=== PATIENT | male | born 1950 | race Caucasian/White ===

== ENCOUNTER 2022-10-20 12:23 | Outpatient (CLI) | payer MEDICARE, SELFPAY | END 2022-10-20 12:24 | disposition home or self-care (01) | LOC: AMB 10-21 12:36 | PROVIDERS: Visit Provider Family Medicine | DX: R41.82 Altered mental status, unspecified (principal) | CPT/HCPCS: A0425; A0427 ==

== ENCOUNTER 2022-10-20 12:42 | Emergency (ER) | payer MEDICARE, SELFPAY ==
[2022-10-20] VITALS (29 sets, daily range): BP systolic 126–167; BP diastolic 62–101; PULSE 96–130; TEMP 36.5; O2SAT 94–97
--- NOTE | 2022-10-20 13:07 | CRLHL7_ITS ---
For Patients: As a result of the Century Cures Act, medical imaging exams and procedure reports are released immediately into your electronic medical record. You may view this report before your referring provider. If you have questions, please contact your health care provider. Indication: Altered mental status Technique: Volumetric multidetector CT images of the head were obtained without the administration of low osmolar intravenous contrast. Comparison: None available Findings: There is no intra-axial or extra-axial fluid collection. There is no mass effect or midline shift. There is extensive global cortical atrophy and sulcal widening with ex vacuo dilatation of lateral ventricles greater than expected for age. There is mild asymmetrical atrophy of the right greater than left cerebral vertex. There is moderate chronic small vessel disease change within the subcortical and periventricular white matter. Otherwise, the brain parenchyma is preserved in attenuation and conrad-white differentiation. The orbits and their contents are grossly within normal limits. The bony calvarium is grossly intact. 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 The mastoid air cells are well aerated. Impression: Extensive global cortical atrophy with sulcal widening and ex vacuo dilatation greater than expected for age which may represent a component of dementia. There is mild asymmetrical atrophy of the right greater than left cerebral hemisphere. Otherwise, no acute intracranial abnormalities appreciated. Please note that all CT scans at this facility use dose modulation, iterative reconstruction, and/or weight-based dosing when appropriate to reduce radiation dose to as low as reasonably achievable. Dictated by Dudley Tyson MD @ 10/20/2022 2:49:12 PM (Electronically Signed)
[2022-10-20 13:23] LABS: Basophils Percent Auto 0.1 % (0.0-3.0); HCO3 VBG 22 mmol/L (21-28); Hematocrit 44.5 % (37.0-53.0); Hemoglobin* 15.5 gm/dL (13.5-17.5); Immature Granulocytes Pct Auto 0.3 %; Lactate* 2.1 mmol/L (0.5-1.9); Lymphocytes Percent Auto 1.2 % (20-44); Mean Corpuscular HGB Conc 35 gm/dL (32-36); Mean Corpuscular Hemoglobin 32 pg (26-34); Mean Corpuscular Volume 91 fL (80-100); Monocytes Percent Auto 1.9 % (0.0-11.0); Neutrophils Percent Auto 96.5 % (42.0-72.0); PCO2 VBG 33 mmHG (40-50); PO2 VBG 44.6 mmHG (25-47); Platelet Count* 190 K/uL (140-440); RDW Coefficient of Variation % 12.4 % (11.5-15.5); Red Blood Count 4.89 m/uL (4.30-5.90); White Blood Count* 15.66 K/uL (4.50-11.00); pH VBG 7.437 (7.32-7.43)
[2022-10-20 13:27] LABS: Slide Review Reflex No
--- NOTE | 2022-10-20 13:31 | CRLHL7_ITS ---
For Patients: As a result of the Century Cures Act, medical imaging exams and procedure reports are released immediately into your electronic medical record. You may view this report before your referring provider. If you have questions, please contact your health care provider. Indication: Chills, vomiting and bloody stools Technique: Volumetric multidetector CT images of the abdomen and pelvis were obtained after the administration of intravenous contrast. 98 cc Isovue 370 low osmolar intravenous contrast Comparison: None available. Findings: There is minimal basilar atelectasis and parenchymal scar. There is a 4.7 millimeter nodule along the right major fissure. The liver is enlarged with moderate hepatic steatosis and hepatomegaly. There is no focal abnormality. The portal vein is patent. The gallbladder is unremarkable without evidence of radiopaque calculus. There is no significant common biliary ductal dilatation or abrupt cut off. The spleen is normal in enhancement and size. There is mild thickening of the gastric antrum with [id number] gastric mucosal hyperemia. Otherwise the stomach is unremarkable. The pancreas is normal in enhancement without significant atrophy. The adrenal glands are unremarkable. The kidneys demonstrate preserved corticomedullary differentiation with mild nonspecific perinephric stranding. There is no evidence of distal obstructive calculus or hydronephrosis. There is mild to moderate stool seen throughout the colon with minimal descending and sigmoid diverticulosis. There is nonspecific fluid seen within central loops of small bowel. The appendix is unremarkable. There is no significant mesenteric, retroperitoneal, or pelvic sidewall lymph nodes. The aorta is not aneurysmal with scattered atherosclerotic calcifications. The solid pelvic viscera are grossly unremarkable. There is no free fluid or free air. There is a small fat containing umbilical hernia. The lumbar vertebral body heights are grossly maintained with minimal endplate Schmorl`s defects. There is mild straightening of the normal lumbar lordosis. There is mild facet arthrosis. No evidence of displaced fracture. Impression: Mild chronic gastritis changes. Minimal nonspecific fluid is seen within the central small bowel which may be physiologic versus early enteritis change. Moderate stool is seen throughout the proximal colon with distal colonic diverticulosis without overt pericolonic inflammatory changes. The decompressed appearance of the descending and sigmoid colon may obscure low-grade infectious or inflammatory changes. Mild hepatomegaly and hepatic steatosis. Nonspecific perinephric stranding and cystic changes without evidence of obstructive uropathy or obvious filling defect to suggest pyelonephritis. No other acute intra-abdominal abnormalities are appreciated. Please note that all CT scans at this facility use dose modulation, iterative reconstruction, and/or weight-based dosing when appropriate to reduce radiation dose to as low as reasonably achievable. Dictated by Dudley Tyson MD @ 10/20/2022 2:55:15 PM (Electronically Signed)
--- NOTE | 2022-10-20 13:32 | ED_ITS ---
HPI - General Adult General Date Seen: 10/20/22 Chief complaint: Altered Mental Status Stated complaint: Heart issue/weakness Time Seen by Provider: 10/20/22 12:53 Source: patient and family Mode of arrival: EMS Limitations: no limitations History of Present Illness HPI narrative: Patient is a 72-year-old male brought in by EMS, initially reported for altered mental status. History is obtained from the patient as well as his . His reports that she got up at about 7:00 a.m., noting that patient must have gotten up earlier, she estimates about 5:00 a.m.. She saw that he had a bucket next to him on the couch, and that he had been vomiting. She also noted that he had had diarrhea in the bathroom, and there seemed to be a little bit of blood. Does that she left him sleeping on the couch. At some point he got up to the bathroom again, probably about 9 or 930. He seems to made it back to the couch after that. She says that she went downstairs to read until about 11. At that point, he was upstairs in the master bedroom bathroom, and she says that when he was going from the bathroom back to the master bed, he seemed to be stumbling, like his balance was off. She had to help him put his underwear back on because he seemed to be having difficulty with his balance, and she thought he seemed confused. She said that she asked him to say 3 sentences, and he only said I love you. She asked him what city they were in in he said [place]. However, she became concerned about possible stroke and so she called 911. Patient tells me that he went to bed feeling fine, he says he woke up at about quarter to 4 feeling chilled. For the next couple of hours he says he just felt poorly, was having chills on and off. He started to eat breakfast early, but says his stomach was starting to bother him by then so he did not finish his breakfast. He says by about 6 or so he had started to have some vomiting as well as some diarrhea. He notes that he has had a little bit of blood in his stools, denies black stools. He has not had significant abdominal pain but does note a little bit of abdominal pain and a little bit headache. He believes he has had a fever based on how he is feeling. He has not checked his temperature. He denies chest pain or difficulty breathing. He does feel somewhat weak. No urinary symptoms. He remembers all the events up in the master bedroom, says he was feeling somewhat unsteady but attributes this to his bad knees. His says that he seems better now than he did at home. Related Data Home Medications Medication Instructions Recorded Confirmed atorvastatin 20 mg tablet 20 mg PO DAILY 10/20/22 10/20/22 diltiazem HCl 240 mg 240 mg PO DAILY 10/20/22 10/20/22 capsule,extended release 24 hr (Cardizem CD) lisinopril 20 mg tablet 10 mg PO DAILY 10/20/22 10/20/22 metoprolol succinate 100 mg 100 mg PO DAILY 10/20/22 10/20/22 capsule sprinkle, ext. release 24 hr (Kapspargo Sprinkle) rivaroxaban 20 mg PO DAILY 10/20/22 10/20/22 Allergies Allergy/AdvReac Type Severity Reaction Status Date / Time bee venom protein (honey bee) Allergy Unknown Verified 10/20/22 14:15 Review of Systems Status of ROS: Reports: 10 or more systems reviewed and unremarkable except as noted in History and below [facility] Social History Smoking Status: Never smoker How often do you have a drink containing alcohol: 4 or more times a week How many standard drinks containing alcohol do you have on a typical day: 3 or 4 How often do you have six or more drinks on one occasion: Never AUDIT-C Alcohol total score: 5 Non-prescribed substance use: denies use Exam Narrative: Exam Narrative: Vital signs as noted above. In general, an alert, mildly fatigued appearing elderly male. Head: Normocephalic, atraumatic. Eyes: Pupils are equal reactive. Extraocular movements are full. Conjunctivae are normal. No scleral icterus. ENT: Mucous membranes are slightly dry. Throat is normal. Neck: Supple without lymphadenopathy. No meningeal signs. Heart: Mildly tachycardic, regular. No murmur. Lungs: Clear bilaterally. No increased work of breathing, crackles or wheezes. Abdomen: Soft and nondistended, nontender to palpation. Extremities: Well perfused. No edema. No calf tenderness. Pulses intact. Neurologic: Patient is alert and oriented to person and place. Speech is fluent. Face is symmetric. Moves all extremities equally. Cerebellar function is intact by finger-nose testing. Affect: Normal. Skin: Warm and dry. Well perfused. Const: Vital Signs, click to edit/add: Vital Signs - 24 hr 10/20/22 12:51 10/20/22 13:08 10/20/22 12:57 Temperature 97.7 F Pulse Rate 110 H Pulse Rate [Pulse Oximeter] 109 H Blood Pressure Blood Pressure [Ri ght Upper Arm] 138/87 Pulse Oximetry 95 95 94 Oxygen Delivery Me thod Room Air 10/20/22 13:00 10/20/22 13:12 10/20/22 13:13 Temperature Pulse Rate 108 H 102 H 107 H Pulse Rate [Pulse Oximeter] Blood Pressure 167/89 H Blood Pressure [Ri ght Upper Arm] Pulse Oximetry 96 96 96 Oxygen Delivery Me thod 10/20/22 13:30 10/20/22 13:32 10/20/22 13:33 Temperature Pulse Rate 108 H 117 H 114 H Pulse Rate [Pulse Oximeter] Blood Pressure 148/101 H Blood Pressure [Ri ght Upper Arm] Pulse Oximetry 94 94 95 Oxygen Delivery Me thod 10/20/22 14:01 10/20/22 14:02 10/20/22 14:30 Temperature Pulse Rate 120 H 107 H 110 H Pulse Rate [Pulse Oximeter] Blood Pressure 143/90 H Blood Pressure [Ri ght Upper Arm] Pulse Oximetry 94 95 95 Oxygen Delivery Me thod 10/20/22 14:31 10/20/22 15:00 10/20/22 15:02 Temperature Pulse Rate 124 H 114 H 107 H Pulse Rate [Pulse Oximeter] Blood Pressure 155/99 H 154/93 H Blood Pressure [Ri ght Upper Arm] Pulse Oximetry 95 96 96 Oxygen Delivery Me thod 10/20/22 15:03 10/20/22 15:32 10/20/22 15:33 Temperature Pulse Rate 118 H 116 H 107 H Pulse Rate [Pulse Oximeter] Blood Pressure 149/91 H Blood Pressure [Ri ght Upper Arm] Pulse Oximetry 97 96 95 Oxygen Delivery Me thod 10/20/22 16:00 10/20/22 16:02 10/20/22 16:03 Temperature Pulse Rate 118 H 106 H 120 H Pulse Rate [Pulse Oximeter] Blood Pressure 155/88 H Blood Pressure [Ri ght Upper Arm] Pulse Oximetry 96 96 96 Oxygen Delivery Me thod 10/20/22 16:34 10/20/22 16:36 10/20/22 17:00 Temperature Pulse Rate 130 H 121 H Pulse Rate [Pulse Oximeter] Blood Pressure 145/99 H Blood Pressure [Ri ght Upper Arm] Pulse Oximetry 96 95 Oxygen Delivery Me thod 10/20/22 17:01 10/20/22 17:02 10/20/22 17:30 Temperature Pulse Rate 113 H 115 H 96 Pulse Rate [Pulse Oximeter] Blood Pressure 143/62 H Blood Pressure [Ri ght Upper Arm] Pulse Oximetry 94 96 95 Oxygen Delivery Me thod 10/20/22 17:31 10/20/22 17:32 Temperature Pulse Rate 116 H 102 H Pulse Rate [Pulse Oximeter] Blood Pressure 126/65 Blood Pressure [Ri ght Upper Arm] Pulse Oximetry 95 95 Oxygen Delivery Me thod Course Course Hospital Course: Patient had an IV in place, we gave him a L of normal saline here as well as some Zofran. He had no further vomiting and did not have any further diarrhea while here. He continued to complain of mild headache, did not have any severe abdominal pain. His labs showed an elevated white blood cell count of 15.6. Hemoglobin was normal at 15.5 and platelets were normal. His INR was 1.47, consistent with his Eliquis. His venous gas showed an essentially normal pH of 7.43, pCO2 was mildly low at 33, I did note him to be somewhat tachypneic on his arrival. His bicarb was normal at 22. Metabolic panel was notable for a mildly low sodium of 3.4, otherwise normal. Glucose was 127. His lactate initially was 2.1. LFTs notable for an AST of 41, ALT was normal. Alk-phos was normal, bilirubin was normal. CRP was very minimally elevated at 1.4. UA was notable for 2+ ketones. He did have 2-5 red cells and 5-10 white cells, this is been sent for culture. COVID influenza and RSV were negative. A troponin here was normal. I thought that I ordered 1 on arrival, but 1 does not seem to have been done. Therefore, his troponin was done several hours after his arrival. It was 0.01. His initial EKG on arrival was notable for atrial fibrillation, he had a rate at that time of 109 beats per minute. He had an incomplete right bundle branch and a little bit of ST depression in leads 1 to and V5 and V6. I did repeat the EKG once early on in his course and then I repeated again a couple of hours after his I am here. There are no significant changes. I do not have an old EKG, but I do not see any dynamic changes in EKGs here, and the troponin a number of hours into his symptoms is negative which is reassuring. His symptoms primarily are gastrointestinal in nature. I did do a head CT since his was concerned about some possible confusion or balance issues, by my review this is negative for hemorrhage, final radiology read is as follows: Extensive global cortical atrophy with sulcal widening and ex vacuo dilatation greater than expected for age which may represent a component of dementia. There is mild asymmetrical atrophy of the right greater than left cerebral hemisphere. Otherwise, no acute intracranial abnormalities appreciated. I also did a CT of the abdomen and pelvis with contrast, which by my review did not show evidence of diverticulitis, small-bowel obstruction, free air, cholecystitis. He did have some fluid noted in small-bowel loops but I did not see dilated small-bowel loops. Final radiology read is as follows: Mild chronic gastritis changes. Minimal nonspecific fluid is seen within the central small bowel which may be physiologic versus early enteritis change. Moderate stool is seen throughout the proximal colon with distal colonic diverticulosis without overt pericolonic inflammatory changes. The decompressed appearance of the descending and sigmoid colon may obscure low-grade infectious or inflammatory changes. Mild hepatomegaly and hepatic steatosis. Nonspecific perinephric stranding and cystic changes without evidence of obstructive uropathy or obvious filling defect to suggest pyelonephritis. No other acute intra-abdominal abnormalities are appreciated. Overall, I think this is in line with his clinical picture which is that of a gastrointestinal illness, likely viral. He does report a little bit of blood in his stool but has not had any further diarrhea while here. Hemoglobin is normal. Abdominal exam is benign. He feels improved after fluids here. He has been ambulatory, he has been able to eat and drink. Did offer admission if he felt that he was feeling too weak to go home, but he says he would prefer to go home and his feels comfortable with that. Discussed with them if he is feeling worse for any reason, develops severe abdominal pain, fevers, ongoing vomiting, or significant bloody stools/black stools, he should return to the emergency department for re-evaluation. Also discussed that if these symptoms are in fact viral he should feel better over the next 24-48 hours and if not he should be seen in clinic for re-evaluation. Zofran prescribed if needed for nausea. Recommend clear liquids for the next 12-24 hours, advance diet as able. Vital Signs Vital signs: Initial Vital Signs Temperature 97.7 F 10/20/22 12:51 Temperature Source Temporal Artery Scan 10/20/22 12:51 Pulse Rate 109 H 10/20/22 12:51 Blood Pressure 138/87 10/20/22 12:51 Blood Pressure Mean 104 10/20/22 12:51 Blood Pressure Position Supine 10/20/22 12:51 Pulse Oximetry 95 10/20/22 12:51 Oxygen Delivery Method 10/20/22 12:51 Vital Signs Temperature 97.7 F 10/20/22 12:51 Pulse Rate 109 H 10/20/22 12:51 Blood Pressure 138/87 10/20/22 12:51 Pulse Oximetry 95 10/20/22 12:51 Oxygen Delivery Method 10/20/22 12:51 Temperature 97.7 F 10/20/22 12:51 Pulse Rate 102 H 10/20/22 17:32 Blood Pressure 126/65 10/20/22 17:31 Pulse Oximetry 95 10/20/22 17:32 Oxygen Delivery Method 10/20/22 12:51 Medical Decision Making Lab Data Labs: Lab Results 10/20/22 10/20/22 10/20/22 Range/Units 13:05 13:05 13:05 WBC 15.66 H (4.50-11.00) K/uL RBC 4.89 (4.30-5.90) m/uL Hgb 15.5 (13.5-17.5) gm/dL Hct 44.5 (37.0-53.0) % MCV 91 (80-100) fL MCH 32 (26-34) pg MCHC 35 (32-36) gm/dL RDW Coeff of Ankush 12.4 (11.5-15.5) % Plt Count 190 (140-440) K/uL Neut % (Auto) 96.5 H (42.0-72.0) % Lymph % (Auto) 1.2 L (20-44) % [place] % (Auto) 1.9 (0.0-11.0) % Eos % (Auto) 0.0 (0.0-7.0) % Baso % (Auto) 0.1 (0.0-3.0) % Neut # (Auto) 15.10 H (1.7-7.0) K/uL Lymph # (Auto) 0.20 L (0.90-2.90) K/uL [place] # (Auto) 0.30 (0.00-0.90) K/UL Eos # (Auto) 0.00 (0.00-0.50) K/uL Baso # (Auto) 0.00 (0.00-0.30) K/uL INR (0.91-1.10) VBG pH (7.32-7.43) VBG pCO2 (40-50) mmHG VBG pO2 (25-47) mmHG VBG HCO3 (21-28) mmol/L Sodium 138 (135-149) mmol/L Potassium 3.4 L (3.6-5.1) mmol/L Chloride 109 (96-114) mmol/L Carbon Dioxide 22 (20-32) mmol/L BUN 19 (7-30) mg/dL Creatinine 0.8 (0.5-1.5) mg/dL Estimated Creat Clear 69.03 Estimated GFR 93 ml/min Glucose 127 H (60-115) mg/dL Lactate 2.1 H (0.5-1.9) mmol/L Calcium 9.1 (8.4-10.6) mg/dL Total Bilirubin 1.4 (0.1-1.5) mg/dL Direct Bilirubin 0.4 (0.0-0.5) mg/dL AST 41 H (12-35) U/L ALT 36 (4-50) U/L Alkaline Phosphatase 59 (40-150) U/L Troponin I 0.02 (0.01-0.04) ng/mL C-Reactive Protein 1.4 H (0.5-1.0) mg/dL Total Protein 6.9 (6.0-8.3) g/dL Albumin 4.1 (3.3-5.0) g/dL Urine Color (Yellow) Urine Appearance (Clear) Urine pH (5.0-8.5) Ur Specific [place] (1.000-1.030) Urine Protein (Negative) Urine Glucose (UA) (Negative) Urine Ketones (Negative) Urine Blood (Negative) Urine Nitrite (Negative) Urine Bilirubin (Negative) Urine Urobilinogen (0.2-1.0) Ur Leukocyte Esterase (Negative) Urine RBC (0-2) Urine WBC (0-5) Ur Squamous Epith Cells (None-Few) Urine Bacteria (None) SARS-CoV-2 (PCR) (Negative) Influenza Type A (PCR) (Negative) Influenza Type B (PCR) (Negative) RSV (PCR) (Negative) POC Troponin I (0.01-0.04) ng/ml 10/20/22 10/20/22 10/20/22 Range/Units 13:05 13:05 13:09 WBC (4.50-11.00) K/uL RBC (4.30-5.90) m/uL Hgb (13.5-17.5) gm/dL Hct (37.0-53.0) % MCV (80-100) fL MCH (26-34) pg MCHC (32-36) gm/dL RDW Coeff of Ankush (11.5-15.5) % Plt Count (140-440) K/uL Neut % (Auto) (42.0-72.0) % Lymph % (Auto) (20-44) % [place] % (Auto) (0.0-11.0) % Eos % (Auto) (0.0-7.0) % Baso % (Auto) (0.0-3.0) % Neut # (Auto) (1.7-7.0) K/uL Lymph # (Auto) (0.90-2.90) K/uL [place] # (Auto) (0.00-0.90) K/UL Eos # (Auto) (0.00-0.50) K/uL Baso # (Auto) (0.00-0.30) K/uL INR 1.47 H (0.91-1.10) VBG pH 7.437 H (7.32-7.43) VBG pCO2 33 L (40-50) mmHG VBG pO2 44.6 (25-47) mmHG VBG HCO3 22 (21-28) mmol/L Sodium (135-149) mmol/L Potassium (3.6-5.1) mmol/L Chloride (96-114) mmol/L Carbon Dioxide (20-32) mmol/L BUN (7-30) mg/dL Creatinine (0.5-1.5) mg/dL Estimated Creat Clear Estimated GFR ml/min Glucose (60-115) mg/dL Lactate (0.5-1.9) mmol/L Calcium (8.4-10.6) mg/dL Total Bilirubin (0.1-1.5) mg/dL Direct Bilirubin (0.0-0.5) mg/dL AST (12-35) U/L ALT (4-50) U/L Alkaline Phosphatase (40-150) U/L Troponin I (0.01-0.04) ng/mL C-Reactive Protein (0.5-1.0) mg/dL Total Protein (6.0-8.3) g/dL Albumin (3.3-5.0) g/dL Urine Color (Yellow) Urine Appearance (Clear) Urine pH (5.0-8.5) Ur Specific [place] (1.000-1.030) Urine Protein (Negative) Urine Glucose (UA) (Negative) Urine Ketones (Negative) Urine Blood (Negative) Urine Nitrite (Negative) Urine Bilirubin (Negative) Urine Urobilinogen (0.2-1.0) Ur Leukocyte Esterase (Negative) Urine RBC (0-2) Urine WBC (0-5) Ur Squamous Epith Cells (None-Few) Urine Bacteria (None) SARS-CoV-2 (PCR) Negative SARS-CoV-2 (Negative) Influenza Type A (PCR) Negative PCR FLU A (Negative) Influenza Type B (PCR) Negative PCR FLU B (Negative) RSV (PCR) Negative PCR RSV (Negative) POC Troponin I (0.01-0.04) ng/ml 10/20/22 10/20/22 Range/Units 15:33 17:06 WBC (4.50-11.00) K/uL RBC (4.30-5.90) m/uL Hgb (13.5-17.5) gm/dL Hct (37.0-53.0) % MCV (80-100) fL MCH (26-34) pg MCHC (32-36) gm/dL RDW Coeff of Ankush (11.5-15.5) % Plt Count (140-440) K/uL Neut % (Auto) (42.0-72.0) % Lymph % (Auto) (20-44) % [place] % (Auto) (0.0-11.0) % Eos % (Auto) (0.0-7.0) % Baso % (Auto) (0.0-3.0) % Neut # (Auto) (1.7-7.0) K/uL Lymph # (Auto) (0.90-2.90) K/uL [place] # (Auto) (0.00-0.90) K/UL Eos # (Auto) (0.00-0.50) K/uL Baso # (Auto) (0.00-0.30) K/uL INR (0.91-1.10) VBG pH (7.32-7.43) VBG pCO2 (40-50) mmHG VBG pO2 (25-47) mmHG VBG HCO3 (21-28) mmol/L Sodium (135-149) mmol/L Potassium (3.6-5.1) mmol/L Chloride (96-114) mmol/L Carbon Dioxide (20-32) mmol/L BUN (7-30) mg/dL Creatinine (0.5-1.5) mg/dL Estimated Creat Clear Estimated GFR ml/min Glucose (60-115) mg/dL Lactate (0.5-1.9) mmol/L Calcium (8.4-10.6) mg/dL Total Bilirubin (0.1-1.5) mg/dL Direct Bilirubin (0.0-0.5) mg/dL AST (12-35) U/L ALT (4-50) U/L Alkaline Phosphatase (40-150) U/L Troponin I (0.01-0.04) ng/mL C-Reactive Protein (0.5-1.0) mg/dL Total Protein (6.0-8.3) g/dL Albumin (3.3-5.0) g/dL Urine Color Yellow (Yellow) Urine Appearance Slightly Cloudy A (Clear) Urine pH 5.5 (5.0-8.5) Ur Specific [place] 1.015 (1.000-1.030) Urine Protein Negative (Negative) Urine Glucose (UA) Negative (Negative) Urine Ketones 2+ A (Negative) Urine Blood 1+ A (Negative) Urine Nitrite Negative (Negative) Urine Bilirubin Negative (Negative) Urine Urobilinogen 0.2 (0.2-1.0) Ur Leukocyte Esterase 1+ A (Negative) Urine RBC 2-5 A (0-2) Urine WBC 5-10 A (0-5) Ur Squamous Epith Cells None (None-Few) Urine Bacteria Few A (None) SARS-CoV-2 (PCR) (Negative) Influenza Type A (PCR) (Negative) Influenza Type B (PCR) (Negative) RSV (PCR) (Negative) POC Troponin I 0.01 (0.01-0.04) ng/ml Discharge Plan Discharge Clinical Impression: Gastroenteritis, Dehydration Patient Disposition: Home, Self-Care Condition: Improved Instructions: Gastroenteritis (DC) Additional Instructions: Work on hydration, stick with mostly clear liquids for the next day or so, advance diet as you are able. Zofran if needed for nausea. Assuming this is a stomach bug, you should feel better over the next 24 hours. If you are not improved over the next 24-48 hours, you should be seen again at your clinic. If at any time you are acutely worsening, develops high fevers, significant bloody stools, significant abdominal pain, uncontrolled vomiting, severe abdominal pain or other worsening, return to the emergency department. Prescriptions: No Action rivaroxaban [Xarelto] 20 mg PO DAILY atorvastatin 20 mg tablet 20 mg PO DAILY diltiazem HCl [Cardizem CD] 240 mg capsule,extended release 24hr 240 mg PO DAILY Kapspargo Sprinkle 100 mg capsule,sprinkle,ER 24hr 100 mg PO DAILY lisinopril 20 mg tablet 10 mg PO DAILY Follow Up/Referrals: Hadley Richard MD [Staff Physician] - Stand Alone Forms: [facility] Info Instructions
[2022-10-20 13:34] LABS: Albumin* 4.1 g/dL (3.3-5.0); Chloride* 109 mmol/L (96-114); Sodium* 138 mmol/L (135-149)
[2022-10-20 13:35] LABS: Potassium* 3.4 mmol/L (3.6-5.1)
[2022-10-20 13:36] LABS: INR 1.47 (0.91-1.10); Prothrombin Time 18.7 Seconds
[2022-10-20 13:37] LABS: Creatinine* 0.8 mg/dL (0.5-1.5); Est. Creatinine Clearance* 69.03; Estimated Glomerular Filt Rate 93 ml/min
[2022-10-20 13:38] LABS: Alanine Aminotransferase* 36 U/L (4-50); Alkaline Phosphatase* 59 U/L (40-150); Aspartate Amino Transferase* 41 U/L (12-35); Bilirubin Direct* 0.4 mg/dL (0.0-0.5); Bilirubin Total* 1.4 mg/dL (0.1-1.5); Blood Urea Nitrogen* 19 mg/dL (7-30); Calcium* 9.1 mg/dL (8.4-10.6); Carbon Dioxide* 22 mmol/L (20-32); Glucose* 127 mg/dL (60-115); Total Protein* 6.9 g/dL (6.0-8.3)
[2022-10-20 13:40] LABS: C Reactive Protein* 1.4 mg/dL (0.5-1.0)
[2022-10-20 13:49] LABS: Troponin I* 0.02 ng/mL (0.01-0.04)
[2022-10-20] MEDS: 0.9 % SODIUM CHLORIDE 1000 ml 1,000 ML IV (14:03)
[2022-10-20 15:22] LABS: PCR FLU A Negative PCR FLU A (Negative); PCR FLU B Negative PCR FLU B (Negative); PCR RSV Negative PCR RSV (Negative); SARS PCR* Negative SARS-CoV-2 (Negative)
[2022-10-20 15:47] LABS: Troponin, Point-of-Care* 0.01 ng/ml (0.01-0.04)
--- NOTE | 2022-10-20 17:04 | ED.NURSE ---
Pt tolerating liquids and applesauce, no nausea. Pt ambulated, able to ambulate independently with no assistance. Some slight swaying to his gait but stable and tolerates ambulation well. notified.
[2022-10-20 17:25] LABS: Appearance Urine Slightly Cloudy (Clear); Bilirubin Urine Negative (Negative); Blood Urine 1+ (Negative); Color Urine Yellow (Yellow); Glucose Urine Negative (Negative); Ketones Urine 2+ (Negative); Leukocyte Esterase Urine 1+ (Negative); Nitrite Urine Negative (Negative); Protein Urine Negative (Negative); Specific Gravity Urine 1.015 (1.000-1.030); Urobilinogen Urine 0.2 (0.2-1.0); pH Urine 5.5 (5.0-8.5)
[2022-10-20 17:40] LABS: Bacteria Urine Few
== END 2022-10-20 18:12 | disposition home or self-care (01) ==
PROVIDERS: Emergency Provider Emergency Medicine
DX: K52.9 Noninfective gastroenteritis and colitis, unspecified (principal); E86.0 Dehydration
CPT/HCPCS: 36415; 70450; 74177; 80048; 80076; 81001; 82803; 83605; 84484; 85025; 85610; 86140; 87040; 87086; 87186; 87502; 87634; 87635; 93005; 94761; 99284; 99285; J7030; Q9967

== ENCOUNTER 2024-10-24 09:37 | Outpatient (CLI) | payer MEDICARE, SELFPAY | END 2024-10-24 09:38 | disposition home or self-care (01) | LOC: NFLDREF 10:29 | PROVIDERS: PCP Internal Medicine; Visit Provider Internal Medicine | DX: I10 Essential (primary) hypertension (principal) | CPT/HCPCS: 80053 ==

== ENCOUNTER 2024-10-24 10:21 | Outpatient (CLI) | payer MEDICARE, SELFPAY | END 2024-10-24 10:22 | disposition home or self-care (01) | PROVIDERS: PCP Internal Medicine; Visit Provider Orthopaedic Surgery | DX: Z11.9 Encounter for screening for infectious and parasitic diseases, unspecified (principal); I10 Essential (primary) hypertension | CPT/HCPCS: 87081 ==

== ENCOUNTER 2024-11-16 18:43 | Outpatient (CLI) | payer MEDICARE, SELFPAY | END 2024-11-16 18:44 | disposition home or self-care (01) | LOC: AMB 11-17 09:16 | PROVIDERS: PCP Internal Medicine; Visit Provider Student in an Organized Health Care Education/Training Program | DX: R55 Syncope and collapse (principal); R41.82 Altered mental status, unspecified | CPT/HCPCS: A0425; A0427 ==

== ENCOUNTER 2024-11-16 19:20 | Observation (INO) | payer MEDICARE, SELFPAY ==
[2024-11-16] VITALS (17 sets, daily range): BP systolic 135–146; BP diastolic 63–91; PULSE 56–97; RESP 6–22; TEMP 35.7; O2SAT 95–98; BMI 30.8
--- OUTSIDE RECORDS SUMMARY | 2024-11-16 19:21 | XMS_ITS | Encounter Summary ---
Author Organization [facility] Address [address] [address] Care Team Providers Care Consultant [employer]. Vice President [employer] (Ex ) Name Role Phone Jessenia Linda MD Primary Care Provider [phone]- [phone] Reason for Visit * Reason Comments Refill Encounter Details Date Type Department Care Team (Late st Contact Info) Description 11/13/2024 [facility]ill [facility] [address] [facility] [place], [place] [phone] Tavon Momin MD [address] [place], [place] [phone] Refill Social History Tobacco Use Types Packs/Day Years Used Date Smoking Tobacco: Never Smokeless Tobacco: Never Alcohol Use Standard Drinks/Week Comments Yes 7 (1 standard drink = 0.6 oz pur e alcohol) PHQ-2 Answer Date Recorded PHQ-2 Score 0 05/20/2021 Sex and Gender Information Value Date Recorded Sex Assigned at Not on file Legal Sex Male 4:33 AM CDT Gender Identity Not on file Sexual Orientation Not on file documented as of this encounter Plan of Treatment Upcoming Encounters Date Type Department Care Team (Late st Contact Info) Description 11/21/2024 9:00 AM ASSEMBLER INSULATOR Appointment [facility] [address] [phone] Car Kirby, PT [address] [place], [place] [phone] 11/23/2024 1:00 PM ASSEMBLER INSULATOR Appointment [facility] [place] [id number] [place] [address] Car Kirby, PT [address] [facility] [place], [place] [address] 11/28/2024 11:15 AM ASSEMBLER INSULATOR Appointment [facility] [address] [address] Car Kirby, PT [address] [place], [place] [address] 11/30/2024 9:00 AM ASSEMBLER INSULATOR Appointment [facility] Orthopaedics & Sports Medicine [address] [place] [phone] [place] [address] [place] [address] 11/30/2024 1:00 PM ASSEMBLER INSULATOR Appointment [facility] [address] [address] Car Kirby, PT [address] [place], [place] [address] 12/05/2024 11:15 AM ASSEMBLER INSULATOR Appointment [facility] [address] [address] Car Kirby, PT [address] [facility] [place], [place] [address] 12/07/2024 1:00 PM ASSEMBLER INSULATOR Appointment [facility] [address] [address] Car Kirby, PT [address] [facility] [place], [place] [address] 12/12/2024 9:45 AM CDT Appointment [facility] [address] [address] [place] [address] [place] [address] 12/14/2024 10:00 AM CDT Appointment [facility] [address] [address] [place] [address] [place] [address] 12/19/2024 11:15 AM CDT Appointment [facility] [address] [address] Car Kirby, PT [address] [place] [address] 12/21/2024 1:00 PM CDT Appointment [facility] [address] [address] Car Kirby, PT [address] [place] [address] 01/02/2025 11:15 AM CDT Appointment [facility] [address] [address] Car Kirby, PT [address] [place] [address] 01/04/2025 10:30 AM CDT Appointment [facility]ics [facility] Medicine [address] [place] [phone] Dima Hoffman, OA [address] [place] [address] 01/04/2025 1:00 PM CDT Appointment [facility] [address] [address] Car Kirby, PT [address] [place] [address] 05/08/2025 10:15 AM CDT Appointment [facility] Plastic Surgery and Dermatology [facility] [address], [address] [place] [phone] Ambreen Hollis MD [address] [place] [phone] 10/25/2025 10:00 AM ASSEMBLER INSULATOR Appointment [facility] [address] [employer] [place], [place] [address] David Aguilar MD 3900 [place] [address] documented as of this encounter Goals Goal Patient Goal Type Associated Problems Recent Progress Patient-Stated? Author KNEE REPLACEMENT - [facility] - [facility] Care Plan KNEE REPLACEMENT - [facility] - [facility] Ramez Celis documented as of this encounter Visit Diagnoses Not on filedocumented in this encounter Additional Health Concerns Active Problems Noted Date Diagnosed Date KNEE REPLACEMENT - [facility] - [facility] 10/31/2024 documented as of this encounter Care Teams Consultant [employer]. Vice President [employer] (Ex ) Relationship Specialty Start Date End Date Jessenia Linda MD [address] [place] [address] PCP - General Internal Medicine 04/07/24 documented as of this encounter
--- OUTSIDE RECORDS SUMMARY | 2024-11-16 19:21 | XMS_ITS | Encounter Summary ---
[facility] Address [address] [address] Care Team Providers Care Apprenticeship Training Representative Name Role Phone Jessenia Linda MD Primary Care Provider [phone]- [phone] Encounter Details Date Type Department Care Team (Late st Contact Info) Description 10/12/2024 Telephone [facility] Cardiology [address] [place], [place] [phone] Tavon Momin MD [address] [place] [address] Social History Tobacco Use Types Packs/Day Years [...] on file documented as of this encounter Nursing Notes * Corinna Morris RN - 10/12/2024 1:51 PM CST Fannectt message sent O CASE MAKER * Corinna Morris RN - 10/12/2024 1:48 PM CST ----- Message from Tavon Momin sent at 10/12/2024 12:07 PM PIANO CASE MAKER ----- Labs look good. ----- Message ----- From: Lab Background Sent: 10/12/2024 11:39 AM PIANO CASE MAKER To: Tavon Momin MD O CASE MAKER documented in this encounter Plan of Treatment Upcoming Encounters Date Type Department Care Team (Late st Contact Info) Description 11/21/2024 9:00 AM PIANO CASE MAKER Appointment [facility] [address] [address] Car Kirby, PT [address] [place], [place] [address] 11/23/2024 1:00 PM PIANO CASE MAKER Appointment [facility] [address] [address] Car Kirby, PT [address] [employer] [place], [place] [address] 11/28/2024 11:15 AM PIANO CASE MAKER Appointment [facility] [address] [address] Car Kirby, PT [address] [place], [place] [address] 11/30/2024 9:00 AM PIANO CASE MAKER Appointment [facility] Orthopaedics & Sports Medicine [address] [place] [phone] [place] [address] [place], [place] [address] 11/30/2024 1:00 PM PIANO CASE MAKER Appointment [facility] [address] [address] Car Kirby, PT [address] [place], [place] [address] 12/05/2024 11:15 AM PIANO CASE MAKER Appointment [facility] [place] [address] [place] [address] Car Kirby, PT [address] [place] [address] 12/07/2024 1:00 PM PIANO CASE MAKER Appointment [facility] [address] [address] Car Kirby, PT [address] [place] [address] 12/12/2024 9:45 AM CDT Appointment [facility] [address] [address] [place] [address] [place] [address] 12/14/2024 10:00 AM CDT Appointment [facility] [address] [address] [place] [address] [place] [address] 12/19/2024 11:15 AM CDT Appointment [facility] [address] [address] Car Kirby, PT [address] [place] [address] 12/21/2024 1:00 PM CDT Appointment [facility] [address] [address] Car Kirby, PT [address] [place] [address] 01/02/2025 11:15 AM CDT Appointment [facility] [address] [address] Car Kirby, PT [address] [place] [address] 01/04/2025 10:30 AM CDT Appointment [facility] [place] [facility] [address] [place] [phone] Dima Hoffman, OA [address] [facility] [place] [address] 01/04/2025 1:00 PM CDT Appointment [facility] [place] [address] [place] [address] Car Kirby, PT [address] [place] [address] 05/08/2025 10:15 AM CDT Appointment [facility] Pl[facility] Surgery [facility] Dermat[facility] [address], [address] [place] [phone] Ambreen Hollis MD [address] [place] [phone] 10/25/2025 10:00 AM PIANO CASE MAKER Appointment [facility] [address] [facility] [place], [place] [phone] David Aguilar MD [address] [place], [place] [address] documented as of this encounter Visit Diagnoses Not on filedocumented in this encounter Care Teams Apprenticeship Training Representative Relationship Specialty Start Date End Date Jessenia Linda MD [address] [place] [address] PCP - General Internal Medicine 04/07/24 documented as of this encounter
--- OUTSIDE RECORDS SUMMARY | 2024-11-16 19:21 | XMS_ITS | Encounter Summary ---
Author Organization [facility] Address [address] [place] [address] Care Team Providers Care Magnetic Locater Name Role Phone Jessenia Linda MD Primary Care Provider +1- [phone] Reason for Visit * Reason Comments Knee Problem Encounter Details Date Type Department Care Team (Late st Contact Info) Description 10/16/2024 2:30 PM OIL DERRICK OPERATOR Therapy [facility] [address] [address] [place] [address] [place] [address] Chronic pain of right knee (Primary Dx); History of total right knee replacement Social History Tobacco Use Types Packs/Day Years [...] on file documented as of this encounter Progress Notes * Sam Cortez, PT - 10/16/2024 2:30 PM CST [facility] Operative Knee Evaluation/Plan of Care Initial Certification Period: 10/16/2024 to 01/14/25 Referring Provider: KIA MARIE Surgical Procedure: anticipated R TKA Surgical Date: anticipated 11/15/24 Visit Diagnosis: 1. Chronic pain of right knee 2. History of total right knee replacement Precautions: WBAT Orders: Evaluate & treat per protocol Onset/Referral Date: 09/21/24 (order date) SUBJECTIVE Reason for Visit: Pt presents to PT for pre-op appointment with anticipated R TKA on 11/15/24. Pt has experienced long-standing knee pain that has not improved with conservative care and has elected to proceed with TKA. Pt is hoping to get to the point where he can be on his feet for a long period of time prior to pain. Is planning on going [place] [employer] the week of [place] 26 and needs to cancel his appt on 12/26 and 12/28. He also sees that he has surgery on 11/15 and isn't scheduled until 11/28 (thiswas addressed in session today). Pain = 2/10 Patient Therapy Goals: Resume previous level of activity symptom free. Past Medical History: Past Medical History: Past medical history, medication, and allergies were reviewed in the electronic medical record. 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 Presbyopia Myopia S/P vasectomy S/P tonsillectomy and adenoidectomy S/P left knee arthroscopy BPH (benign prostatic hyperplasia) Vitamin D deficiency (HRC) Enlarged prostate with urinary obstruction Asymmetric SNHL (sensorineural hearing loss) Adenomatous polyp of colon Atrial fibrillation with RVR (HRC) Cataract, nuclear sclerotic, both eyes Dyslipidemia (HRC) Anticoagulant long-term use LVH (left ventricular hypertrophy) Ascending aorta dilation (HRC) Aortic insufficiency (HRC) Personal history of malignant melanoma of skin Lower urinary tract symptoms (LUTS) Hard, firm prostate Severe obstructive sleep apnea History of SCC (squamous cell carcinoma) of skin History of dysplastic nevus . Patient has a current medication list which includes the following prescription(s): acetaminophen, atorvastatin, azelaic acid 10%-ivermectin 0.75%- metroNIDAZOLE 1.5% topical cream, digoxin, glucosamine-chondroitin, ketoconazole, lisinopril, metoprolol succinate, metronidazole, xarelto, and triamcinolone acetonide. Patient has a past medical history of BPH (benign prostatic hyperplasia) (11/29/2012), Hypertension (HRC), Sensorineural hearing loss, unspecified, and Vitamin D deficiency (HRC) (11/29/2012). Recently Experienced (Red Flags): Denies fever, chills, night sweats, unrelenting night pain, unexplained weight loss, bowel/bladder changes, saddle sensation changes Pain details: Current pain intensity level: 11/13 Aggravating factors: going up and down stairs, standing, walking, squatting, kneeling, and rising after sitting Relieving factors: Resting and Restriction of activity Work/Leisure/Sport: pt is retired. Would like to bike and walk for exercise. Would like to resume resistance training after surgery Support System: lives with , has a son close by if needed Prior Functional Level: Mobility: --Independent with community mobility with no assistive device. --Independent with household mobility with no assistive device. Assistance provided by: no assistance needed Home Environment: house (able to stay on 1 level but does have a basement he would like to get to) Stairs: 3 steps to enter home: no rail Current Equipment Available: SEC - Single End Cane and cane , Patient History: High Complexity: 3 or more personal factors and/or comorbidities that impact plan of care: A-fib, ascending aorta dilation, aortic insufficiency, h/o skin cancer OBJECTIVE Observation: WNL Gait Exam: Antalgic Transfers: Sit to stand: independent Sit to/from supine: independent Edema: None ROM: AROM Left Extension ROM: 0 Flexion ROM: 120 Right Extension ROM: 0 Flexion ROM: 116 Strength: Quad set: Good SLR: Good, without extensor lag No outcome data collected. Will collect at visit #2 Clinical Examination: Low complexity: Addressed 1-2 elements from body structures and functions (see above), and/or functional limitations as noted below. Today's Intervention/Charges: Physical Therapy Evaluation was completed and the patient was educated on the condition, planned therapy intervention and expectations from treatment. Therapeutic Exercise: 10 minutes -Education- Strengthening and stretching pre-operatively may improve your strength, pain level and function based on current research -Knee exercises: Instructed in and performed TKA exercises: Supine quad sets, hamstring sets, heel slides, straight leg raise, short arc quad, supine knee extension stretch, ankle pumps, seated knee flexion x 10 each, cues for form/pace Therapeutic Activity: 10 minutes -Education for sleep/rest modifications: Place pillow(s) lengthwise under distal LE in supine to keep the knee straight, NOT just under knee. Pillow between legs in sidelying. Recliner with pillow under distal LE to keep knee straight and supported. -Elevating leg(s) above the heart for swelling management, 2-3 times per day, 20 minutes, with concurrent icing for swelling and pain management -Sit to stand transfers, including cues for scooting forward, using arms for support, positioning pre-surgical foot forward to unload and reduce pain -Car transfers, including these cues: Front seat: scooting car seat all the way back, backing up tocar seat, sitting down and pivoting LE's in. Back seat: entering from the passenger side of the carfor the R leg and entering from the driver retraining instructor side for the L leg; first backing up to the car seat, scooting all the way back so the painful leg is supported by the back seat Gait Trainin minutes -Ascending: cues to lead up with uninvolved LE to reduce current pain. -Descending: cues to lead down first with involved LE to reduce current pain. Timed Code Treatment Minutes: 23 Total Treatment Minutes: 31 *pt shows up late to appointmentw Access Code: [email or web address] URL: [email or web address] Date: 10/16/2024 Prepared by: Sam Cortez Exercises - Supine Quad Set - 3-4 x daily - 7 x weekly - 2 sets - 10 reps - 3 seconds hold - Supine Short Arc Quad - 1-2 x daily - 7 x weekly - 2 sets - 10 reps - Active Straight Leg Raise with Quad Set - 1-2 x daily - 7 x weekly - 1-2 sets - 5-10 reps - Seated Long Arc Quad - 1-2 x daily - 7 x weekly - 2 sets - 10 reps - Supine Heel Slide - 3-4 x daily - 7 x weekly - 2 sets - 10 reps - Supine Knee Extension Stretch on Towel Roll - 3-4 x daily - 7 x weekly - 1 sets - 1 reps - 1-3 minutes hold - Seated Knee Flexion Extension AROM - 3-4 x daily - 7 x weekly - 2 sets - 10 reps - Supine Ankle Pumps - 3-4 x daily - 7 x weekly - 1 sets - 10 reps ASSESSMENT Therapist Impression/Summary: Pt presents to PT prior to R TKA expected to be performed on 11/15/24.At session today educated and instructed pt on expected HEP following surgical procedure, use of ADto assist with mobility following surgery, activity modifications, and use of ice, elevation and swelling to assist with pain management and swelling control following surgery. Pt states verbal understanding. Pt will return to clinic for skilled PT following surgical procedure using protocol as a guide as well as any additional guidance from surgical team. PT Clinical Presentation: Low Complexity: Stable and Uncomplicated Clinical Decision Making: Low Complexity Recommendations/Equipment: No additional recommendations at this time Significant Impairments: Pain, Muscle weakness, Muscular imbalances, Poor quad activation/strength,ROM Limitation Functional Limitations: poor body mechanics, difficulty sleeping, difficulty dressing, difficulty with household tasks, difficulty with sports/leisure activities, difficulty with gait, and difficultywith stairs Goals/Functional Outcomes: HEP/Independent Management: Demonstrate independence with HEP and self- management following each treatment session Short Term Goals: Ambulation: Patient will be able to ambulate independently and safely for at least 50 feet for household distances with 4WW assistive device while weightbearing as tolerated in 2-3 days. Ambulation: Patient will have an understanding of the proper sequence of gait up and down stairs and safely demonstrate while weightbearing as tolerated in 2-3 days. ADL: Patient will be able to simulate and describe back to physical therapist a car transfer with use of AD in 2-3 days. ADL: Patient will be able to perform bed and sit to stand transfers independently in 2-3 days Construction Project Manager Goals: Ambulation: Patient will be able to demonstrate up/down 1 flight of stairs with a step through gaitpattern and use of 0-1 railing in 10-12 weeks Ambulation: Patient will be able to ambulate community distances with minimal to no symptoms/limp in 12 weeks. ADL's: Resume previous sleep pattern without awakening due to symptoms in 4 weeks. ADL: Patient will be able to demonstrate sit to stand transfers using involved LE equally 2-4 weeks ADL: Able to dress lower extremities with ease due to improved ROM in 4-6 weeks. ADL: Squat to meat pickler items from floor with minimal/no symptoms in 8-10 weeks. Barriers to Goal Achievement or Learning: none Prognosis: Good PLAN Planned Intervention/Education: ADL/Self Management, Dry Needling, Education, Electrical Stimulation, Gait training, Heat/ice, Manual Therapy, Neuromuscular Re-education, Orthotics, TENS application/self treatment, Therapeutic Activities, Therapeutic Exercise, Ultrasound, Vasopneumatic compression Frequency: 1 x week, 2 x week Duration: 90 days Discharge Plan: Patient will be discharged from therapy when goals are achieved or patient plateausin progress. Informed Consent: Patient and/or family in agreement with the care plan. Plan for Next Treatment: Continue pre-operatively independently and Resume PT post-operatively per protocol. At visit #2, start episode and collect outcomes. The waffle machine operator is completed by the therapist and the referring clinician's electronic signature certifies medical necessity for the plan above. Cosigned by Kia Marie MD at 10/27/2024 5:34 PM OIL DERRICK OPERATOR DERRICK OPERATOR DERRICK OPERATOR DERRICK OPERATOR documented in this encounter Plan of Treatment Upcoming Encounters Date Type Department Care Team (Late st Contact Info) Description 11/21/2024 9:00 AM OIL DERRICK OPERATOR Appointment [facility] [address] [address] Car Kirby, PT [address] [place] [address] 11/23/2024 1:00 PM OIL DERRICK OPERATOR Appointment [facility] [address] [address] Car Kirby, PT [address] [place] [address] 11/28/2024 11:15 AM OIL DERRICK OPERATOR Appointment [facility] [address] [address] Car Kirby, PT [address] [place] [address] 11/30/2024 9:00 AM OIL DERRICK OPERATOR Appointment [facility] Orthopa[facility]ics & Sports Medicine [address] [place] [address] [place] [address] [place] [address] 11/30/2024 1:00 PM OIL DERRICK OPERATOR Appointment [facility] [address] [address] Car Kirby, PT [address] [place] [address] 12/05/2024 11:15 AM OIL DERRICK OPERATOR Appointment [facility] [address] [address] Car Kirby, PT [address] [place] [address] 12/07/2024 1:00 PM OIL DERRICK OPERATOR Appointment [facility] [address] [address] Car Kirby, PT [address] [place] [address] 12/12/2024 9:45 AM CDT Appointment [facility] [address] [address] [place] [address] [place] [address] 12/14/2024 10:00 AM CDT Appointment [facility] [address] [address] [place] [address] [place] [address] 12/19/2024 11:15 AM CDT Appointment [facility] [address] [address] Car Kirby, PT [address] [place] [address] 12/21/2024 1:00 PM CDT Appointment [facility] [place] [address] [place] [address] Car Kirby, PT [address] [place] [address] 01/02/2025 11:15 AM CDT Appointment [facility] Physical Therapy [place] [address] [place] [address] Car Kirby, PT [address] [place] [address] 01/04/2025 10:30 AM CDT Appointment [facility] Medicine [address] [place] [phone] Dima Hoffman, OA [address] [place] [address] 01/04/2025 1:00 PM CDT Appointment [facility] Physical Therapy [place] [address] [place] [address] Car Kirby, PT [address] [place] [address] 05/08/2025 10:15 AM CDT Appointment [facility] Pl[facility] Surgery and D[facility]at[facility] [place] [facility] [address], [address] [place] [phone] Ambreen Hollis MD [address] [place] [phone] 10/25/2025 10:00 AM OIL DERRICK OPERATOR Appointment [facility] [address] [facility] [place], [place] [phone] David Aguilar MD [address] [place] [address] documented as of this encounter Visit Diagnoses Diagnosis Chronic pain of right knee- Primary History of total right knee replacement documented in this encounter Care Teams Magnetic Locater Relationship Specialty Start Date End Date Jessenia Linda MD [address] [place] [address] PCP - General Internal Medicine 04/07/24 documented as of this encounter
--- OUTSIDE RECORDS SUMMARY | 2024-11-16 19:21 | XMS_ITS | Encounter Summary ---
Author Organization [facility] Address [address] [address] Care Team Providers Care Die Repair Name Role Phone Jessenia Linda MD Primary Care Provider [phone]- [phone] Reason for Visit * Reason Comments Refill Encounter Details Date Type Department Care Team (Late st Contact Info) Description 10/09/2024 [facility]ill [facility] [address] [facility] [place], [place] [phone] Tavon Momin MD [address] [place], [place] [phone] Refill Social History Tobacco Use Types Packs/Day [...] st Contact Info) Description 11/21/2024 9:00 AM HEALTH INFORMATICS INSTRUCTOR Appointment [facility] [address] [phone] Car Kirby, PT [address] [place], [place] [phone] 11/23/2024 1:00 PM HEALTH INFORMATICS INSTRUCTOR Appointment [facility] [place] [phone] [place] [address] Car Kirby, PT [address] [facility] [place] [place] [address] 11/28/2024 11:15 AM HEALTH INFORMATICS INSTRUCTOR Appointment [facility] [address] [address] Car Kirby, PT 3800 [place], [place] [address] 11/30/2024 9:00 AM HEALTH INFORMATICS INSTRUCTOR Appointment [facility] Orthopaedics & Sports Medicine [address] [place] [phone] [place] [address] [place] [address] 11/30/2024 1:00 PM HEALTH INFORMATICS INSTRUCTOR Appointment [facility] [address] [address] Car Kirby, PT 3800 [place], [place] [address] 12/05/2024 11:15 AM HEALTH INFORMATICS INSTRUCTOR Appointment [facility] [address] [address] Car Kirby, PT [address] [facility] [place], [place] [address] 12/07/2024 1:00 PM HEALTH INFORMATICS INSTRUCTOR Appointment [facility] [address] [address] Car Kirby, PT [address] [facility] [place], [place] [address] 12/12/2024 9:45 AM CDT Appointment [facility] [address] [address] [place] [address] [place] [address] 12/14/2024 10:00 AM CDT Appointment [facility] [address] [address] [place] [address] [place] [address] 12/19/2024 11:15 AM CDT Appointment [facility] [address] [address] Car Kirby, PT [address] [place] [address] 12/21/2024 1:00 PM CDT Appointment [facility] [address] [address] Car Kirby, PT [address] [place] [address] 01/02/2025 11:15 AM CDT Appointment [facility] [address] [address] Car Kirby, PT [address] [place] [address] 01/04/2025 10:30 AM CDT Appointment [facility] Orthopaedics & Sports Medicine [address] [place] [phone] Dima Hoffman, OA 1700 [place] [address] 01/04/2025 1:00 PM CDT Appointment [facility] [address] [address] Car Kirby, PT [address] [place] [address] 05/08/2025 10:15 AM CDT Appointment [facility] [address], [address] [place] [address] Ambreen Hollis MD [address] [place], [place] [phone] 10/25/2025 10:00 AM HEALTH INFORMATICS INSTRUCTOR Appointment [facility] [address] [facility]. [place], [place] [phone] David Aguilar MD 3900 [place], [place] [phone] documented as of this encounter Results * Creatinine/GFR (10/12/2024 11:29 AM HEALTH INFORMATICS INSTRUCTOR) Creatinine 0.90 0.73 - 1.18 mg/dL 10/12/2024 12:05 PM HEALTH INFORMATICS INSTRUCTOR [facility] GFR, Estimated >60 >60 mL/min/1.7 3m2 10/12/2024 12:05 PM HEALTH INFORMATICS INSTRUCTOR [facility] Blood Venipuncture / Unknown 10/12/2024 11:29 AM HEALTH INFORMATICS INSTRUCTOR 10/12/2024 11:35 AM HEALTH INFORMATICS INSTRUCTOR Tavon Momin MD LAB_1 Final Result [facility] [address] [place] [address] * ALT (SGPT) (10/12/2024 11:29 AM HEALTH INFORMATICS INSTRUCTOR) ALT (SGPT) 39 <=55 U/L 10/12/2024 12:05 PM HEALTH INFORMATICS INSTRUCTOR [facility] Blood Venipuncture / Unknown 10/12/2024 11:29 AM HEALTH INFORMATICS INSTRUCTOR 10/12/2024 11:35 AM HEALTH INFORMATICS INSTRUCTOR Tavon Momin MD LAB_1 Final Result [facility] [address] [place] [address] * Platelets (10/12/2024 11:29 AM HEALTH INFORMATICS INSTRUCTOR) Platelets 261 150 - 450 x10(9)/L 10/12/2024 11:39 AM HEALTH INFORMATICS INSTRUCTOR [facility] Blood Venipuncture / Unknown 10/12/2024 11:29 AM HEALTH INFORMATICS INSTRUCTOR 10/12/2024 11:34 AM HEALTH INFORMATICS INSTRUCTOR Tavon Momin MD LAB_1 Final Result Performing Organization Address [facility] de Phone Number [facility] [address] * Hemoglobin, Blood (10/12/2024 11:29 AM HEALTH INFORMATICS INSTRUCTOR) Hemoglobin 14.7 13.5 - 17.5 g/dL 10/12/2024 11:39 AM HEALTH INFORMATICS INSTRUCTOR [facility] Blood Venipuncture / Unknown 10/12/2024 11:29 AM HEALTH INFORMATICS INSTRUCTOR 10/12/2024 11:34 AM HEALTH INFORMATICS INSTRUCTOR Tavon Momin MD LAB_1 Final Result Performing Organization Address [facility] Phone Number [facility] [address] [place] [address] documented in this encounter Visit Diagnoses Diagnosis Anticoagulant long-term use- Primary Encounter for long-term (current) use of anticoagulants documented in this encounter Care Teams Die Repair Relationship Specialty Start Date End Date Jessenia Linda MD [address] [place] [address] PCP - General Internal Medicine 04/07/24 documented as of this encounter
--- OUTSIDE RECORDS SUMMARY | 2024-11-16 19:21 | XMS_ITS | Encounter Summary ---
Author Organization [facility] Address [address] [address] Care Team Providers Care Recovery Unit Operator Name Role Phone Jessenia Linda MD Primary Care Provider +1- [phone] Reason for Visit * Reason Comments Follow-up Encounter Details Date Type Department Care Team (Late st Contact Info) Description 10/23/2024 9:30 AM MANUFACTURER Office Visit [facility] [address] [facility] [place] [address] David Aguilar MD 3900 [place], [place] [phone] Choroidal nevus of left eye (Primary Dx); Myelinated optic nerve fiber layer, right; Cataract, nuclear sclerotic, both eyes Social History Tobacco Use Types Packs/Day Years [...] on file documented as of this encounter Patient Instructions * Patient Instructions* David Aguilar MD - 10/23/2024 9:30 AM MANUFACTURER You have a Choroidal Nevus (freckle) in your left eye. It is important for us to monitor the lesion (Nevus) for changes as there is a very low risk for this to turn into a type of cancer (choroidal melanoma). Wear UV protected sunglasses. FACTURER documented in this encounter Progress Notes * David Aguilar MD - 10/23/2024 9:30 AM CST OCT: RE: compact macula, normal foveal contour, stable LE: compact macula, normal foveal contour, stable B-scan LE: 10/23/24 c/t 04/15/23 LE: normal optic nerve shadow, few vit opacities, increased signal S mid periphery, no elevation, no evidence of intraocular masses or retinal detachment Fundus Photos: Optos 10/23/24 c/t 10/21/23 RE: 0.2, no Tovar ring, pink optic nerve, normal caliber of blood vessels, blunted foveal reflex, myelinated NFL adjacent to ON at 2 o'clock, periphery attached, stable LE: 0.2, no Tovar ring, pink optic nerve, normal caliber of blood vessels, blunted foveal reflex, amelanotic lesion superior mid periphery 3x4DD, periphery attached, stable Impression/Plan: 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 Dry eyes - Intermittent - Rec AT's prn Return 1 year for OCT BE and dilation BE, OPTOS BE, Bscan LE, sooner PRN Further details of the management plan can be found in the Patient Instructions section which wasprinted and given to the patient. Attending Physician Attestation: Complete documentation of historical and exam elements from today's encounter can be found in the full encounter summary report (not reduplicated in this progress note). I personally obtained the chief complaint(s) and history of present illness. I confirmed and edited as necessary the review of systems, past medical/surgical history, family history, social history, and examination findings as documented by others; and I examined the patient myself. I personallyreviewed the relevant tests, images, and reports as documented above. I formulated and edited as necessary the assessment and plan and discussed the findings and management plan with the patient and family- David Aguilar MD FACTURER documented in this encounter Plan of Treatment Upcoming Encounters Date Type Department Care Team (Late st Contact Info) Description 11/21/2024 9:00 AM MANUFACTURER Appointment [facility] [address] [address] Car Kirby, PT [address] [place], [place] [address] 11/23/2024 1:00 PM MANUFACTURER Appointment [facility] [address] [address] Car Kirby, PT [address] [place], [place] [address] 11/28/2024 11:15 AM MANUFACTURER Appointment [facility] [address] [address] Car Kirby, PT [address] [place], [place] [address] 11/30/2024 9:00 AM MANUFACTURER Appointment [facility] Orthopaedics & Sports Medicine [address] [place] [phone] [place] [address] [place] [address] 11/30/2024 1:00 PM MANUFACTURER Appointment [facility] [address] [address] Car Kirby, PT [address] [place] [address] 12/05/2024 11:15 AM MANUFACTURER Appointment [facility] [address] [address] aCr Kirby, PT [address] [place] [address] 12/07/2024 1:00 PM MANUFACTURER Appointment [facility] [address] [address] Car Kirby, PT [address] [place] [address] 12/12/2024 9:45 AM CDT Appointment [facility] [address] [address] [place] [address] [place] [address] 12/14/2024 10:00 AM CDT Appointment [facility] [address] [address] [place] [address] [place] [address] 12/19/2024 11:15 AM CDT Appointment [facility] [address] [address] Car Kirby, PT [address] [place] [address] 12/21/2024 1:00 PM CDT Appointment [facility] [address] [address] Car Kirby, PT [address] [place] [address] 01/02/2025 11:15 AM CDT Appointment [facility] [address] [address] Car Kirby, PT [address] [place] [address] 01/04/2025 10:30 AM CDT Appointment [facility] [address] [place] [address] Dima Hoffman W, OA 1700 [facility] [place] [address] 01/04/2025 1:00 PM CDT Appointment [facility] [place] [address] [place] [address] Car Kirby, PT 3800 [place] [address] 05/08/2025 10:15 AM CDT Appointment [facility] Plastic Surgery and Dermatology [place] - [facility]ermatology [address], [address] [place] [phone] Ambreen Hollis MD [address] [place], [place] [phone] 10/25/2025 10:00 AM MANUFACTURER Appointment [facility] [address] [facility] 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
--- OUTSIDE RECORDS SUMMARY | 2024-11-16 19:21 | XMS_ITS | Encounter Summary ---
Author Organization [facility] Address [address], [place] [address] Care Team Providers Care Assistant Maintenance Manager Name Role Phone Jessenia Linda MD Primary Care Provider +1- [phone] Reason for Visit * Reason Comments QUESTIONS, GENERAL Encounter Details Date Type Department Care Team (Late st Contact Info) Description 10/24/2024 Telephone [facility] Orthopaedics & Sports Medicine [address] [place] [address] [place] [address] [place] [address] QUESTIONS, GENERAL Social History Tobacco Use Types Packs/Day Years [...] as of this encounter Nursing Notes * Merary Ureña RN - 10/24/2024 10:56 AM CST [facility] lab calling, patient seen for preop and labs completed. Fax number for labs requested. [phone] Sinha's NPI also given. No questions. OMS DIRECTOR documented in this encounter Plan of Treatment Upcoming Encounters Date Type Department Care Team (Late st Contact Info) Description 11/21/2024 9:00 AM CUSTOMS DIRECTOR Appointment [facility] [address] [address] Car Kirby, PT [address] [place], [place] [address] 11/23/2024 1:00 PM CUSTOMS DIRECTOR Appointment [facility] [address] [address] Car Kirby, PT [address] [place], [place] [address] 11/28/2024 11:15 AM CUSTOMS DIRECTOR Appointment [facility] [address] [address] Car Kirby, PT [address] [place], [place] [address] 11/30/2024 9:00 AM CUSTOMS DIRECTOR Appointment [facility] Orthopaedics & Sports Medicine [address] [place] [phone] [place] [address] [place] [address] 11/30/2024 1:00 PM CUSTOMS DIRECTOR Appointment [facility] [address] [address] Car Kirby, PT [address] [place], [place] [address] 12/05/2024 11:15 AM CUSTOMS DIRECTOR Appointment [facility] [address] [address] Car Kirby, PT [address] [place] [address] 12/07/2024 1:00 PM CUSTOMS DIRECTOR Appointment [facility] [address] [address] Car Kirby, PT [address] [place] [address] 12/12/2024 9:45 AM CDT Appointment [facility] Physical Therapy [address] [address] [place] [address] [place] [address] 12/14/2024 10:00 AM CDT Appointment [facility] Physical [address] [address] [place] [address] [place] [address] 12/19/2024 11:15 AM CDT Appointment [facility] Physical [address] [address] Car Kirby, PT [address] [place] [address] 12/21/2024 1:00 PM CDT Appointment [facility] Physical [address] [address] Car Kirby, PT [address] [place] [address] 01/02/2025 11:15 AM CDT Appointment [facility] Physical Therapy [address] [address] Car Kirby, PT [address] [place] [address] 01/04/2025 10:30 AM CDT Appointment [facility] Orthopaedics & Sports Medicine [address] [place] [address] Dima Hoffman, OA 1700 [place] [address] 01/04/2025 1:00 PM CDT Appointment [facility] [place] [address] [place] [address] Car Kirby, PT 3800 [place] [address] 05/08/2025 10:15 AM CDT Appointment [facility] Plastic Surgery and Dermatology [place] - Dermatology [address], [address] [place] [phone] Ambreen Hollis MD [address] [place] [phone] 10/25/2025 10:00 AM CUSTOMS DIRECTOR Appointment [place] [address] [address] [facility] [place] [address] David Aguilar MD 3900 [place] [address] documented as of this encounter Visit Diagnoses Not on filedocumented in this encounter Care Teams Assistant Maintenance Manager Relationship Specialty Start Date End Date Jessenia Linda MD [address] [place] [address] PCP - General Internal Medicine 04/07/24 documented as of this encounter
--- OUTSIDE RECORDS SUMMARY | 2024-11-16 19:21 | XMS_ITS | Encounter Summary ---
Author Organization [facility] Address [address], [place] [address] Care Team Providers Care Bilingual Student Tutor Name Role Phone Jessenia Linda MD Primary Care Provider +1- [phone] Encounter Details Date Type Department Care Team (Late st Contact Info) Description 10/12/2024 11:50 AM ADJUNCT FACULTY MATHEMATICS DEPARTMENT Lab [facility] [address] [facility] [place], [place] [phone] Anticoagulant long-term use Social History Tobacco Use Types Packs/Day Years [...] st Contact Info) Description 11/21/2024 9:00 AM ADJUNCT FACULTY MATHEMATICS DEPARTMENT Appointment [facility] [place] [address] [place] [address] Car Kirby, PT [address] [place] [address] 11/23/2024 1:00 PM ADJUNCT FACULTY MATHEMATICS DEPARTMENT Appointment [facility] [place] [address] [place] [address] Car Kirby, PT 3800 [place] [address] 11/28/2024 11:15 AM ADJUNCT FACULTY MATHEMATICS DEPARTMENT Appointment [facility] [place] [phone] [place] [address] Car Kirby, PT 3800 [place] [address] 11/30/2024 9:00 AM ADJUNCT FACULTY MATHEMATICS DEPARTMENT Appointment [facility] Orthopaedics & Sports Medicine [address] [place] [address] [place] [address] [place] [address] 11/30/2024 1:00 PM ADJUNCT FACULTY MATHEMATICS DEPARTMENT Appointment [facility] [address] [address] Car Kirby, PT 3800 [place] [address] 12/05/2024 11:15 AM ADJUNCT FACULTY MATHEMATICS DEPARTMENT Appointment [facility] [address] [address] Car Kirby, PT 3800 [place] [address] 12/07/2024 1:00 PM ADJUNCT FACULTY MATHEMATICS DEPARTMENT Appointment [facility] [address] [address] Car Kirby, PT 3800 [place] [address] 12/12/2024 9:45 AM CDT Appointment [facility] [address] [address] [place] [address] [place] [address] 12/14/2024 10:00 AM CDT Appointment [facility] [address] [address] [place] [address] [place] [address] 12/19/2024 11:15 AM CDT Appointment [facility] [place] [address] [place] [address] Car Kirby, PT [address] [place], [place] [address] 12/21/2024 1:00 PM CDT Appointment [facility] [address] [address] Car Kirby, PT 38[address] [place], [place] [address] 01/02/2025 11:15 AM CDT Appointment [facility] [address] [address] Car Kirby, PT 3800 [place], [place] [address] 01/04/2025 10:30 AM CDT Appointment [facility] Orthopaedics & Sports Medicine [address] [place] [phone] Dima Hoffman, OA 1700 [place] [address] 01/04/2025 1:00 PM CDT Appointment [facility] [address] [address] Car Kirby, PT 3800 [place], [place] [address] 05/08/2025 10:15 AM CDT Appointment [facility] Surgery [facility] [place] [facility]ology [address], [address] [place] [phone] Ambreen Hollis MD [address] [place] [phone] 10/25/2025 10:00 AM ADJUNCT FACULTY MATHEMATICS DEPARTMENT Appointment [facility] [address] [facility] [place] [address] David Aguilar MD 3900 [place], [place] [address] documented as of this encounter Procedures Procedure Name Priority Date/Time Associated Diagnosis Comments CREATININE / GFR Routine 10/12/2024 11:2 9 AM ADJUNCT FACULTY MATHEMATICS DEPARTMENT Anticoagulant long-term use PLATELETS Routine 10/12/2024 11:29 AM ADJUNCT FACULTY MATHEMATICS DEPARTMENT Anticoagulant long-term use HEMOGLOBIN, BLOOD Routine 10/12/2024 11: 29 AM ADJUNCT FACULTY MATHEMATICS DEPARTMENT Anticoagulant long-term use ALT (SGPT) Routine 10/12/2024 11:29 AM ADJUNCT FACULTY MATHEMATICS DEPARTMENT Anticoagulant long-term use documented in this encounter Results * Creatinine/GFR (10/12/2024 11:29 AM ADJUNCT FACULTY MATHEMATICS DEPARTMENT) Creatinine 0.90 0.73 - 1.18 mg/dL 10/12/2024 12:05 PM ADJUNCT FACULTY MATHEMATICS DEPARTMENT [facility] GFR, Estimated >60 >60 mL/min/1.7 3m2 10/12/2024 12:05 PM ADJUNCT FACULTY MATHEMATICS DEPARTMENT [facility] Blood Venipuncture / Unknown 10/12/2024 11:29 AM ADJUNCT FACULTY MATHEMATICS DEPARTMENT 10/12/2024 11:35 AM ADJUNCT FACULTY MATHEMATICS DEPARTMENT us Tavon Momin MD LAB_1 Final Result [facility] [address] [place], [place] [address] * ALT (SGPT) (10/12/2024 11:29 AM ADJUNCT FACULTY MATHEMATICS DEPARTMENT) ALT (SGPT) 39 <=55 U/L 10/12/2024 12:05 PM ADJUNCT FACULTY MATHEMATICS DEPARTMENT [facility] Blood Venipuncture / Unknown 10/12/2024 11:29 AM ADJUNCT FACULTY MATHEMATICS DEPARTMENT 10/12/2024 11:35 AM ADJUNCT FACULTY MATHEMATICS DEPARTMENT us Tavon Momin MD LAB_1 Final Result Performing Organization Address [facility] Co de Phone Number [facility] [address] * Platelets (10/12/2024 11:29 AM ADJUNCT FACULTY MATHEMATICS DEPARTMENT) Platelets 261 150 - 450 x10(9)/L 10/12/2024 11:39 AM ADJUNCT FACULTY MATHEMATICS DEPARTMENT [facility] Blood Venipuncture / Unknown 10/12/2024 11:29 AM ADJUNCT FACULTY MATHEMATICS DEPARTMENT 10/12/2024 11:34 AM ADJUNCT FACULTY MATHEMATICS DEPARTMENT us Tavon Momin MD LAB_1 Final Result Performing Organization Address [facility] de Phone Number [facility] [address] * Hemoglobin, Blood (10/12/2024 11:29 AM ADJUNCT FACULTY MATHEMATICS DEPARTMENT) Hemoglobin 14.7 13.5 - 17.5 g/dL 10/12/2024 11:39 AM ADJUNCT FACULTY MATHEMATICS DEPARTMENT [facility] Blood Venipuncture / Unknown 10/12/2024 11:29 AM ADJUNCT FACULTY MATHEMATICS DEPARTMENT 10/12/2024 11:34 AM ADJUNCT FACULTY MATHEMATICS DEPARTMENT us Tavon Momin MD LAB_1 Final Result Performing Organization Address [facility] de Phone Number [facility] [address] documented in this encounter Visit Diagnoses Diagnosis Anticoagulant long-term use Encounter for long-term (current) use of anticoagulants documented in this encounter Care Teams Bilingual Student Tutor Relationship Specialty Start Date End Date Jessenia Linda MD [address] [place] [address] PCP - General Internal Medicine 04/07/24 documented as of this encounter
--- OUTSIDE RECORDS SUMMARY | 2024-11-16 19:21 | XMS_ITS | Encounter Summary ---
Author Organization [facility] Address [address], [place] [address] Care Team Providers Care Magazine Feeder Name Role Phone Jessenia Linda MD Primary Care Provider [phone]- [phone] Reason for Visit * Reason Comments Medication Questions Entered automatical ly based on patient selection in [place]. Encounter Details Date Type Department Care Team (Late Contact Info) Description 11/07/2024 4:15 PM STRAIGHT TRUCK DRIVER [facility] [address] [facility]. [place], [place] [id number] Tavon Momin MD [address] [place] [address] Chief Comp: Medication Questions Social History Tobacco Use Types Packs/Day Years [...] Encounters Date Type Department Care Team (Late Contact Info) Description 11/21/2024 9:00 AM STRAIGHT TRUCK DRIVER Appointment [facility] [address] [id number] Car Kirby, PT [address] [place], [place] [address] 11/23/2024 1:00 PM STRAIGHT TRUCK DRIVER Appointment [facility] [place] [address] [place] [address] Car Kirby, PT [address] [place], [place] [address] 11/28/2024 11:15 AM STRAIGHT TRUCK DRIVER Appointment [facility] [address] [address] Car Kirby, PT [address] [place], [place] [address] 11/30/2024 9:00 AM STRAIGHT TRUCK DRIVER Appointment [facility] [address] [place] [phone] [place] [address] [place], [place] [address] 11/30/2024 1:00 PM STRAIGHT TRUCK DRIVER Appointment [facility] [address] [address] Car Kirby, PT [address] [place], [place] [address] 12/05/2024 11:15 AM STRAIGHT TRUCK DRIVER Appointment [facility] [address] [address] Car Kirby, PT [address] [place], [place] [address] 12/07/2024 1:00 PM STRAIGHT TRUCK DRIVER Appointment [facility] [address] [address] Car Kirby, PT [address] [place], [place] [address] 12/12/2024 9:45 AM CDT Appointment [facility] [address] [address] [place] [address] [place] [address] 12/14/2024 10:00 AM CDT Appointment [facility] [place] [id number] [place] [address] [place] [address] [place] [address] 12/19/2024 11:15 AM CDT Appointment [facility] [address] [address] Car Kirby, PT [address] [place] [address] 12/21/2024 1:00 PM CDT Appointment [facility] [address] [address] Car Kirby, PT [address] [place] [address] 01/02/2025 11:15 AM CDT Appointment [facility] [address] [address] Car Kirby, PT [address] [place] [address] 01/04/2025 10:30 AM CDT Appointment [facility] [address] [place] [phone] Dima Hoffman, OA [address] [place] [address] 01/04/2025 1:00 PM CDT Appointment [facility] [address] [address] Car Kirby, PT [address] [place] [address] 05/08/2025 10:15 AM CDT Appointment [facility] [place] [facility] [address], [address] [place] [address] Ambreen Hollis MD [address] [place] [address] 10/25/2025 10:00 AM STRAIGHT TRUCK DRIVER Appointment [place] [phone] [address] [facility]. [place], [place] [phone] David Aguilar MD [address] [place] [address] documented as of this encounter Goals Goal Patient Goal Type Associated Problems Recent Progress Patient-Stated? Author KNEE REPLACEMENT - RIGHT - [facility] Care Plan KNEE REPLACEMENT - RIGHT - [facility] Ramez Celis documented as of this encounter Visit Diagnoses Not on filedocumented in this encounter Additional Health Concerns Active Problems Noted Date Diagnosed Date KNEE REPLACEMENT - RIGHT - [facility] 10/31/2024 documented as of this encounter Care Teams Magazine Feeder Relationship Specialty Start Date End Date Jessenia Linda MD [address] [place] [address] PCP - General Internal Medicine 04/07/24 documented as of this encounter
--- OUTSIDE RECORDS SUMMARY | 2024-11-16 19:22 | XMS_ITS | Clinical Summary ---
Author Organization [facility] Address [address] [place] [address] Care Team Providers Care [employer] Physics Instructor Name Role Phone Unavailable Primary Care Provider Unavailabl e Source Comments PLEASE NOTE, if this patient is a minor, it may be UNLAWFUL to discuss sensitive information that is contained in these records (such as FAMILY PLANNING, MENTAL HEALTH or SUBSTANCE ABUSE) with the minor patient's parent or other person without the patient's specific authorization.[facility] Immunizations Name Administration Dates Next Due Moderna COVID-19 Vaccine, re d cap blue label, 12+ Primary Series 01/23/2022,08/04/2021,12/02/2020, 0 21 Social History Tobacco Use Types Packs/Day Years Used Date Smoking Tobacco: Never Assessed Social Connections Answer Date Recorded Social Connections and Isolation 0 11/04/2020 Financial Resource Strain Answer Date R ecorded Financial Resource Strain 0 2020 Stress Answer Date Recorded Stress 0 11/04/2020 Physical Activity Answer Date Recorded Physical Activity 0 11/04/2020 Food Insecurity Answer Date Recorded Food 0 11/04/2020 Transportation Needs Answer Date Record ed Transportation 0 11/04/2020 Housing Stability Answer Date Recorded Housing 0 11/04/2020 Safety and Environment Answer Date Coy rded Safety 0 11/04/2020 Utilities Answer Date Recorded Utilities 0 11/04/2020 Employment Answer Date Recorded Employment 0 11/04/2020 Sex and Gender Information Value Date Recorded Sex Assigned at Not on file Legal Sex Male 6:22 AM PST Gender Identity Not on file Sexual Orientation Not on file Plan of Treatment Health Maintenance Due Date Last Done Comments Hepatitis C Screening 1950 Tobacco Screening 1950 Hypertension Screening (#1) 1966 Falls Prevention 2013 [id number] ( season) 2024 01/23/2022, 08/04/2021, 12/02/2020, Additional history exists Imm-Influenza (#1) 2024 07/02/2021, 0 06/26/2020, 07/20/2019, Additional history exists Alcohol and Drug Screen 10/04/2024 Depression Annual Screen 10/04/2024 Imm-DTaP/Tdap/Td (3 - Td or Tdap) 12/31/2031 12/30/2021, 11/26/2011, 07/27/2005, Additional history exists Imm-Pneumococcal 65+ Completed 09/19/2015, 07/03/20 14 Imm-Zoster, Recombinant Completed 09/23/20 19, 07/20/2019, 04/27/2012
--- OUTSIDE RECORDS SUMMARY | 2024-11-16 19:22 | XMS_ITS | Clinical Summary ---
Author Organization [facility] Address [address] [place] [address] Care Team Providers Care Electrical Control Assembler Name Role Phone Jessenia Linda MD Primary Care Provider [phone] Source Comments You are receiving this document as you are listed as the primary care provider,follow-up provider, or the patient has been referred to you for consultation.This is in compliance with the Medicare and[facility] EHR Incentive Program,which states Providers who transition their patient to another setting of careor provider of care or refers their patient to another provider of care shouldprovide summary care record for each transition of care or referral. [facility] Allerg[facility] Active Allergy Reactions Criticality Noted Date Comments Bee Venom Other, see comments 11/26/2011 PN: localized swellling Medications Glucosamine-Ch ondroit-Vit C-Mn (GLUCOSAMINE-C HONDROITIN) Take 2 Tablets by mouth Daily. 05/01/20 14 Active ketoconazole (NIZORAL) 2 % cream Apply topically daily. 60 g 11 09/15/20 19 Active triamcinolone acetonide (KENALOG) 0.1 % ointmentIndica tions:Psoriasi s vulgaris Apply BID PRN sparingly to pink scaly areas on elbows for up to 2 weeks 60 g 2 09/18/20 21 Active metroNIDAZOLE (METROCREAM) 0.75 % creamIndicatio ns:Rosacea Apply topically two times a day. 60 g 11 05/27/20 22 Active acetaminophen (TYLENOL) 325 MG tablet Take 1-2 Tablets (325-650 mg) by mouth every 4 hours as needed for Pain. Active digoxin (LANOXIN) 250 MCG tablet Take 1 Tablet (250 mcg) by mouth daily. New increased dose 12/28/23 90 Tablet 3 12/28/19 24 025 Active azelaic acid 10%-ivermectin 0.75%-metroNID AZOLE 1.5% topical creamIndicatio ns:Rosacea Apply topically two times a day. 30 g 11 05/09/2024 2:13 PM CDT 05/08/20 24 Active atorvastatin (LIPITOR) 20 MG tablet TAKE 1 TABLET(20 MG) BY MOUTH DAILY 90 Tablet 1 06/08/20 24 Active lisinopril (ZESTRIL) 20 MG tablet TAKE 1 TABLET BY MOUTH DAILY AT BEDTIME 90 Tablet 08/24/20 24 025 Active rivaroxaban (XARELTO) 20 MG tablet TAKE 1 TABLET(20 MG) BY MOUTH EVERY EVENING WITH A MEAL 90 Tablet 10/09/19 25 Active metoprolol succinate (TOPROL XL) 100 MG 24 hour release tablet TAKE 1 TABLET(100 MG) BY MOUTH TWICE DAILY 180 Tablet 3 11/13/19 25 Active metoprolol succinate (TOPROL XL) 100 MG 24 hour release tablet Take 1 Tablet (100 mg) by mouth two times a day. 180 Tablet 3 11/24/19 24 025 Discontinued Active Problems Problem Noted Date Diagnosed Date History of dysplastic nevus 01/05/2023 Overview (07/15/2023): DN, severe atypia, left lower back, s/p shave 10/06/2022 DN, severe atypia, left forearm posterior, s/p shave 04/08/23 Atypical compound nevus, right lower leg anterior, s/p shave 04/08/23 History of SCC (squamous cell carcinoma) of skin 10/06/2022 Overview (10/06/2022): SCCis, right frontal scalp, s/p 5FU x 6 weeks Severe obstructive sleep apnea 07/10/2022 Overview (07/21/2022): Setting: AutoPAP 5-15 cmH20 Supplied by: TEE HST done: 06/30/2022 FITO: 30.6 BACILIO: 32.4 Lowest O2 Sat: 80 MD/APC: Hany/ Luzma Lower urinary tract symptoms (LUTS) 02/11/2022 Hard, firm prostate 02/11/2022 Personal history of malignant melanoma of skin 1 11/19/2020 Overview (05/27/2022): Melanoma, 0.2 mm, left popliteal fossa, s/p excision 07/09/21 Ascending aorta dilation 09/02/2021 Overview (09/02/2021): 4.3 cm Aortic insufficiency 09/02/2021 Overview (09/02/2021): Mild to mod Dyslipidemia 07/04/2020 Anticoagulant long-term use 07/04/2020 LVH (left ventricular hypertrophy) 07/04/2020 Cataract, nuclear sclerotic, both eyes 0 Atrial fibrillation with RVR 05/29/2019 Adenomatous polyp of colon 09/18/2016 Overview (05/26/2017): Adenomatous polyp of colon; last exam was Asymmetric SNHL (sensorineural hearing loss) BPH (benign prostatic hyperplasia) 11/29/2012 Vitamin D deficiency 11/29/2012 Enlarged prostate with urinary obstruction 11/29 S/P vasectomy 11/26/2011 S/P tonsillectomy and adenoidectomy 11/26/2011 S/P left knee arthroscopy 11/26/2011 Overview (05/06/2016): x 2 for meniscus repair. Myelinated retinal nerve fiber layer 08/21/2011 Presbyopia 08/21/2011 Myopia 08/21/2011 Osteoarthrosis involving lower leg 08/24/2005 Overview (05/26/2017): LW Onset: [id number] ; DJD Knee Chondromalacia of patella 08/24/2005 Overview (05/26/2017): LW Onset: [id number] ; Chondromalacia Patella Resolved Problems Problem Noted Date Diagnosed Date Resolved Date Acute urinary tract infection 02/11/2022 08/12/2022 Headache 08/24/2005 01/07/2007 Overview (05/26/2017): LW Onset: ; Headache Mixed Hypertrophy of prostate with urinary obstruction 08/24/2005 09/29/2006 Overview (05/26/2017): LW Onset: ; BPH Age Related Prostate Ca Risk w Obst Encounters Date Type Department Care Team Description 11/13/2024 [facility]ill [facility] [address] [place] [address] Tavon Momin MD Refill 11/07/2024 4:15 PM COUNSELING PSYCHOLOGIST [facility] [address] [place] [address] Tavon Momin MD Chief Comp: Medication Questions 10/24/2024 Telephone [facility] Medicine [address] [place] [address] Beatrice Sinha MD QUESTIONS, GENERAL 10/23/2024 9:30 AM COUNSELING PSYCHOLOGIST Office Visit [facility] [address] [place] [address]. [place] [address] David Aguilar MD Choroidal nevus of left eye (Primary Dx); Myelinated optic nerve fiber layer, right; Cataract, nuclear sclerotic, both eyes 10/16/2024 2:30 PM COUNSELING PSYCHOLOGIST Therapy [facility] [place] [id number] [place] [address] Sam Cortez, PT Chronic pain of right knee (Primary Dx); History of total right knee replacement 10/12/2024 11:50 AM COUNSELING PSYCHOLOGIST Lab [facility] [address] [place] [address] Anticoagulant long-term use 10/12/2024 Telephone [facility] [address] [facility] [place] [address] Tavon Momin MD 10/09/2024 Refill [facility] [address] [facility] [place] [address] Tavon Momin MD Refill 09/21/2024 9:15 AM COUNSELING PSYCHOLOGIST Ancillary Procedure [facility] [address] [address] [place] [address] Beatrice Sinha MD Primary osteoarthritis of right knee 09/21/2024 9:00 AM COUNSELING PSYCHOLOGIST Office Visit [facility]opa[facility] [address] [place] [address] Beatrice Sinha MD Primary osteoarthritis of right knee (Primary Dx); Screening examination for infectious disease; History of total right knee replacement 09/21/2024 Telephone [facility]opa[facility] [address] [place] [address] Beatrice Sinha MD Surgery, To Schedule 09/20/2024 Telephone [facility] [address] [facility] [place] [address] Self-Referral, MD Nikky 08/24/2024 Refill [facility] [address] [facility] [place] [address] Tavon Momin MD Refill from Last 3 Months Immunizations Immunization Administration Dates Next Due Flu Vac (3+ yrs) 07/19/2013,06/30/2011 Flu Vac Preserv Free (3+yrs) 10/06/2012, 10/06/2010,08/02/2008,2004 Fluvirin Vaccine 07/17/2015 S4T3-Dsghdkeiat 10/08/2009 Influenza (Flucelvax), Prese rv Free QIV 07/20/2019 Influenza (Fluzone 0.25, 6-35 mos) 08/05/2017 Influenza (Fluzone ID) 07/20/2018 Influenza IIV3 (Trivalent) F luzone Highdose, 65+ Yrs (17410) 08/19/2016,07/03/2014 Influenza IIV4 (Quadrivalent ) Fluzone, 65+ Yrs 07/02/2021,06/26/2020 Influenza aIIV3 65+ Years (Fluad) 07/20/2018 Moderna Monovalent 12+ 08/04/2021,12/02/2020,10/2020 PCV13 (Prevnar) 09/19/2015 PPSV23 (Pneumovax) 07/03/2014 TDAP (ADACEL) 11/26/2011 Td 07/27/2005,08/10/1994 Tdap 12/30/2021 Zoster (Zostavax) 04/27/2012 Zoster RZV (Shingrix) 09/23/2019,07/20/2019 Family History Medical History Relation Name Comments Cataract Father Diabetes Father Cataract Mother Glaucoma Mother Amblyopia/Strabismus Negative Family History Blindness Negative Family History Macular Degeneration Negative Family History Retinal Detachment Negative Family History Relation Name Status Comments Father Mother Social History Tobacco Use Types Packs/Day Years Used Date Smoking Tobacco: Never Smokeless Tobacco: Never Tobacco Cessation:Counseling Given: Not Answered Alcohol Use Standard Drinks/Week Comments Yes 7 (1 standard drink = 0.6 oz pur e alcohol) PHQ-2 Answer Date Recorded PHQ-2 Score 0 05/20/2021 Sex and Gender Information Value Date Recorded Sex Assigned at Not on file Legal Sex Male 4:33 AM CDT Gender Identity Not on file Sexual Orientation Not on file Last Filed Vital Signs Vital Sign Reading Time Taken Comments Blood Pressure 119/63 11/24/2023 8:30 AM COUNSELING PSYCHOLOGIST Pulse 73 11/24/2023 8:30 AM COUNSELING PSYCHOLOGIST Temperature 36.6 C (97.8 F) 02/20/2021 1:01 PM CDT Respiratory Rate 16 06/26/2022 2:15 PM CDT Oxygen Saturation 98% 08/11/2023 2:00 PM COUNSELING PSYCHOLOGIST Inhaled Oxygen Concentration - - Weight 95 kg (209 lb 7 oz) 09/21/2024 9:23 AM CS T Height 177.8 cm (5' 10) 09/21/2024 9:23 AM COUNSELING PSYCHOLOGIST Body Mass Index 30.05 09/21/2024 9:23 AM COUNSELING PSYCHOLOGIST Plan of Treatment Upcoming Encounters Date Type Department Care Team (Late st Contact Info) Description 11/21/2024 9:00 AM COUNSELING PSYCHOLOGIST Appointment [facility] [address] [address] [place], PT [address] [place], [place] [address] 11/23/2024 1:00 PM COUNSELING PSYCHOLOGIST Appointment [facility] [address] [address] Car [place], PT [address] [place], [place] [address] 11/28/2024 11:15 AM COUNSELING PSYCHOLOGIST Appointment [facility] [address] [address] Car Kirby, PT [address] [place], [place] [address] 11/30/2024 9:00 AM COUNSELING PSYCHOLOGIST Appointment [facility] [address] [place] [phone] [place] [address] [place] [address] 11/30/2024 1:00 PM COUNSELING PSYCHOLOGIST Appointment [facility] [address] [address] Car Kirby, PT [address] [place], [place] [address] 12/05/2024 11:15 AM COUNSELING PSYCHOLOGIST Appointment [facility] [address] [address] Car Kirby, PT [address] [place], [place] [address] 12/07/2024 1:00 PM COUNSELING PSYCHOLOGIST Appointment [facility] [address] [address] Car Kirby, PT [address] [place] [address] 12/12/2024 9:45 AM CDT Appointment [facility] [address] [address] [place] [address] [place] [address] 12/14/2024 10:00 AM CDT Appointment [facility] [address] [address] [place] [address] [place] [address] 12/19/2024 11:15 AM CDT Appointment [facility] [address] [address] Car Kirby, PT [address] [place] [address] 12/21/2024 1:00 PM CDT Appointment [facility] [address] [address] Car Kirby, PT [address] [place] [address] 01/02/2025 11:15 AM CDT Appointment [facility] [address] [address] Car Kirby, PT [address] [place] [address] 01/04/2025 10:30 AM CDT Appointment [facility] [address] [place] [phone] Dima Hoffman, OA [address] [place] [address] 01/04/2025 1:00 PM CDT Appointment [facility] [address] [address] Car Kirby, PT [address] [place] [address] 05/08/2025 10:15 AM CDT Appointment [facility] [place] [facility] [address], [address] [place] [address] Ambreen Hollis MD [address] [facility] [place] [place] [phone] 10/25/2025 10:00 AM COUNSELING PSYCHOLOGIST Appointment [facility] [address] [facility]. [place], [place] [phone] David Aguilar MD [address] [place] [address] Health Maintenance Due Date Last Done Comments RSV (1 - 1-dose 75+ series) 2023 Medicare Annual Wellness Visit 10/04/2024 05/20/2021, 05/29/2019, 08/03/2018 COVID-19 Vaccine ( season) 2025 08/21/2024, 05/04/2024, 07/16/2023, Additional history exists Colonoscopy 06/26/2025 06/26/2022, 02/02, 04/02/2011, Additional history exists DTaP/Tdap/Td (3 - Tdap) 12/31/2031 12/31/19 22, 11/26/2011, 07/27/2005, Additional history exists Hep C Screening (Preventive Services) Completed 09/17/2017 Zoster/Shingles Completed 09/23/2019, 07/04, 04/27/2012 Cholesterol Discontinued 11/17/2023, 06/04, 05/29/2019, Additional history exists Influenza Completed 08/21/2024, 07/04, 07/15/2022, Additional history exists HepA Aged Out No longer eligi ble based on patient's age to complete this topic HepB Aged Out No longer eligi ble based on patient's age to complete this topic Hib Aged Out No longer eligi ble based on patient's age to complete this topic IPV (Polio) Aged Out No longer eligi ble based on patient's age to complete this topic MCV4 Aged Out No longer eligi ble based on patient's age to complete this topic Meningococcal B Aged Out No longer el igible based on patient's age to complete this topic Goals Goal Patient Goal Type Associated Problems Recent Progress Patient-Stated? Author [facility]NEE REPLACEMENT - [facility] - [facility] Care Plan KNEE REPLACEMENT - RIGHT - [facility] No Ramez Orosco Procedures Procedure Name Priority Date/Time Associated Diagnosis Comments CREATININE / GFR Routine 10/12/2024 11:2 9 AM COUNSELING PSYCHOLOGIST Anticoagulant long-term use ALT (SGPT) Routine 10/12/2024 11:29 AM COUNSELING PSYCHOLOGIST Anticoagulant long-term use PLATELETS Routine 10/12/2024 11:29 AM COUNSELING PSYCHOLOGIST Anticoagulant long-term use HEMOGLOBIN, BLOOD Routine 10/12/2024 11: 29 AM COUNSELING PSYCHOLOGIST Anticoagulant long-term use XR KNEE RT 3 VIEWS Routine 09/21/2024 9: 22 AM COUNSELING PSYCHOLOGIST Primary osteoarthritis of right knee LIPID PANEL & DIRECT LDL (IF NEEDED) Routine 11/17/2023 10:02 AM COUNSELING PSYCHOLOGIST Dyslipidemia ([facility]) ENDOSCOPY, COLON, SCREENING/DIAGNOSTI C Routine 06/26/2022 1:04 PM CDT Personal history of colonic polyps HEPATITIS C ANTIBODY, WITH REFLEX Routine 09/17/2017 11:17 AM COUNSELING PSYCHOLOGIST Routine health maintenance from Last 3 Months or Most Recently Relevant to Health Maintenance Results * Creatinine/GFR (10/12/2024 11:29 AM COUNSELING PSYCHOLOGIST) Creatinine 0.90 0.73 - 1.18 mg/dL 10/12/2024 12:05 PM COUNSELING PSYCHOLOGIST [facility] GFR, Estimated >60 >60 mL/min/1.7 3m2 10/12/2024 12:05 PM COUNSELING PSYCHOLOGIST [facility] Blood Venipuncture / Unknown 10/12/2024 11:29 AM COUNSELING PSYCHOLOGIST 10/12/2024 11:35 AM COUNSELING PSYCHOLOGIST Tavon Momin MD LAB_1 Final Result Performing Organization Address [facility] Phone Number [facility] [address] [place] [address] * Platelets (10/12/2024 11:29 AM COUNSELING PSYCHOLOGIST) Platelets 261 150 - 450 x10(9)/L 10/12/2024 11:39 AM COUNSELING PSYCHOLOGIST [facility] Blood Venipuncture / Unknown 10/12/2024 11:29 AM COUNSELING PSYCHOLOGIST 10/12/2024 11:34 AM COUNSELING PSYCHOLOGIST us Tavon Momin MD LAB_1 Final Result Performing Organization Address [facility] Phone Number [facility] [address] [place] [address] * Hemoglobin, Blood (10/12/2024 11:29 AM COUNSELING PSYCHOLOGIST) Hemoglobin 14.7 13.5 - 17.5 g/dL 10/12/2024 11:39 AM COUNSELING PSYCHOLOGIST [facility] Blood Venipuncture / Unknown 10/12/2024 11:29 AM COUNSELING PSYCHOLOGIST 10/12/2024 11:34 AM COUNSELING PSYCHOLOGIST Tavon Momin MD LAB_1 Final Result Performing Organization Address [facility] Phone Number [facility] [address] [place] [address] * ALT (SGPT) (10/12/2024 11:29 AM COUNSELING PSYCHOLOGIST) ALT (SGPT) 39 <=55 U/L 10/12/2024 12:05 PM COUNSELING PSYCHOLOGIST [facility] Blood Venipuncture / Unknown 10/12/2024 11:29 AM COUNSELING PSYCHOLOGIST 10/12/2024 11:35 AM COUNSELING PSYCHOLOGIST Tavon Momin MD LAB_1 Final Result [facility] [address] [place] [address], [facility] * XR Knee Rt 3 Views (09/21/2024 9:22 AM COUNSELING PSYCHOLOGIST) Anatomical Region Laterality Modality Lower Extremity, Knee Digital Ra diography 09/21/2024 9:12 AM COUNSELING PSYCHOLOGIST Narrative 09/21/2024 9:53 AM COUNSELING PSYCHOLOGIST COMPARISON: 05/06/2023 FINDINGS: Three views were obtained. No acute bone abnormalities. Advanced osteoarthritis of the medial compartment with marginal osteophytes. Advanced osteoarthritis of the lateral aspect of the patellofemoral joint space. Small moderate suprapatellar joint effusion. Vascular calcifications are Procedure Note Sylvester Kaplan MD - 09/21/2024 COMPARISON: 05/06/2023 FINDINGS: Three views were obtained. No acute bone abnormalities.Advanced osteoarthritis of the medial compartment with marginalosteophytes. Advanced osteoarthritis of the lateral aspect of thepatellofemoral joint space. Small moderate suprapatellar joint effusion.Vascular calcifications are Beatrice Sinha MD RAD GD Final Re sult * (ABNORMAL) Lipid Panel and Direct LDL (If Needed) (11/17/2023 10:02 AM [facility]) Cholesterol 109 0 - 199 mg/dL 11/17/2023 11:06 AM [facility] Triglyceride 79 <=149 mg/dL 11/17/2023 11:06 AM [facility] HDL Cholesterol 38(L) >=40 mg/dL 11:06 AM [facility] LDL, Calculated 55 <130 mg/dL 11:06 AM [facility] Non HDL Chol, Calculated 71 <=159 mg/dL 11/17/2023 11:06 AM [facility] Cholesterol/HDL Ratio 2.9 <=5.0 11/17/2023 11:06 AM [facility] Hours Fasting 0.0 8 - 12 Hours 11/17/2023 11:06 AM [facility] Comment:Patient has indicate d a non-fasting status. Blood Venipuncture / Unknown 11/17/2023 10:02 AM COUNSELING PSYCHOLOGIST 11/17/2023 10:04 AM COUNSELING PSYCHOLOGIST us Tavon Momin MD LAB_1 Final Result Performing Organization Address City/State/[facility] Co de Phone Number [facility] [address] [place] [address] * Endoscopy, colon, diagnostic (06/26/2022 1:04 PM CDT) Anatomical Region Laterality Modality Other 06/26/2022 1:04 PM CDT Narrative 06/26/2022 1:04 PM CDT Patient Name: Donny Freire Procedure Date: 06/26/2022 1:04 PM Date of : 1950 Admit Type: Outpatient Age: 71 Gender: Male Note Status: Finalized Attending MD: Xiomara Mon , Procedure: Colonoscopy Indications: High risk colon cancer surveillance: Personal history of colonic polyps, Last colonoscopy: February 2017 Providers: Eduarda Calabrese Referring MD: Medicines: Fentanyl 100 micrograms IV, Midazolam 3 mg IV Complications: No immediate complications. Procedure: After I obtained informed consent, the scope was passed under direct vision. Throughout the procedure, the patient's blood pressure, pulse, and oxygen saturations were monitored continuously. The [id number] was introduced through the anus and advanced to the cecum, identified by appendiceal orifice and ileocecal valve. The colonoscopy was performed without difficulty. The patient tolerated the procedure well. The quality of the bowel preparation was good. Findings: A 3 to 4 mm polyp was found in the cecum. The polyp was sessile. The polyp was removed with a cold snare. Resection and retrieval were complete. Two sessile polyps were found in the ascending colon. The polyps were 6 to 8 mm in size. These polyps were removed with a cold snare. Resection and retrieval were complete. A 2 to 3 mm polyp was found in the transverse colon. The polyp was sessile. The polyp was removed with a cold snare. Resection and retrieval were complete. No additional abnormalities were found on retroflexion. Moderate Sedation: Moderate (conscious) sedation was administered by the endoscopy nurse and supervised by the endoscopist. The patient's oxygen saturation, heart rate, blood pressure and response to care were monitored. Total physician intraservice time was 11 minutes. This time is the duration from the initial medication administration until the lending manager assists with initial maneuvers (biopsy / polypectomy / etc.), or if no maneuvers are performed, until the endoscopist leaves the room. Impression: - One 3 to 4 mm polyp in the cecum, removed with a cold snare. Resected and retrieved. - Two 6 to 8 mm polyps in the ascending colon, removed with a cold snare. Resected and retrieved. - One 2 to 3 mm polyp in the transverse colon, removed with a cold snare. Resected and retrieved. Recommendation: - Await pathology results. - Repeat colonoscopy in 3 years for surveillance based on pathology results. - Resume Xarelto (rivaroxaban) at prior dose in 2 days. Procedure Code(s): --- Professional --- 14782, Colonoscopy, flexible; with removal of tumor(s), polyp(s), or other lesion(s) by snare technique G0500, Moderate sedation services provided by the same physician or other qualified health human services care specialist performing a gastrointestinal endoscopic service that sedation supports, requiring the presence of an independent trained observer to assist in the monitoring of the patient's level of consciousness and physiological status; initial 15 minutes of intra-service time; patient age 5 years or older (additional time may be reported with 74533, as appropriate) Diagnosis Code(s): --- Professional --- K63.5, Polyp of colon Z86.010, Personal history of colonic polyps CPT copyright 2020 [employer]. All rights reserved. The codes documented in this report are preliminary and upon hydraulic and plumbing installer review may be revised to meet current compliance requirements. Xiomara 06/26/2022 2:01:13 PM This document has been electronically signed. Number of Addenda: 0 Note Initiated On: 06/26/2022 1:04 PM Endoscopy Report Procedure Note Xiomara Mon MD - 06/26/2022 Patient Name: Donny Freire Procedure Date: 06/26/2022 1:04 PM Date of : 1950 Admit Type: Outpatient Age: 71 Gender: Male Note Status: Finalized Attending MD: Xiomara Mon , Procedure: Colonoscopy Indications: High risk colon cancer surveillance: Personal history of colonic polyps, Last colonoscopy: February 2017 Providers: Eduarda Calabrese Referring MD: Medicines: Fentanyl 100 micrograms IV, Midazolam 3 mg IV Complications: No immediate complications. Procedure: After I obtained informed consent, the scope was passed under direct vision. Throughout the procedure, the patient's blood pressure, pulse, and oxygen saturations were monitored continuously. The [id number] was introduced through the anus and advanced to the cecum, identified by appendiceal orifice and ileocecal valve. The colonoscopy was performed without difficulty. The patient tolerated the procedure well. The quality of the bowel preparation was good. Findings: A 3 to 4 mm polyp was found in the cecum. The polyp was sessile. The polyp was removed with a cold snare. Resection and retrieval were complete. Two sessile polyps were found in the ascending colon. The polyps were 6 to 8 mm in size. These polyps were removed with a cold snare. Resection and retrieval were complete. A 2 to 3 mm polyp was found in the transverse colon. The polyp was sessile. The polyp was removed with a cold snare. Resection and retrieval were complete. No additional abnormalities were found on retroflexion. Moderate Sedation: Moderate (conscious) sedation was administered by the endoscopy nurse and supervised by the endoscopist. The patient's oxygen saturation, heart rate, blood pressure and response to care were monitored. Total physician intraservice time was 11 minutes. This time is the duration from the initial medication administration until the lending manager assists with initial maneuvers (biopsy / polypectomy / etc.), or if no maneuvers are performed, until the endoscopist leaves the room. Impression: - One 3 to 4 mm polyp in the cecum, removed with a cold snare. Resected and retrieved. - Two 6 to 8 mm polyps in the ascending colon, removed with a cold snare. Resected and retrieved. - One 2 to 3 mm polyp in the transverse colon, removed with a cold snare. Resected and retrieved. Recommendation: - Await pathology results. - Repeat colonoscopy in 3 years for surveillance based on pathology results. - Resume Xarelto (rivaroxaban) at prior dose in 2 days. Procedure Code(s): --- Professional --- 47538, Colonoscopy, flexible; with removal of tumor(s), polyp(s), or other lesion(s) by snare technique G0500, Moderate sedation services provided by the same physician or other qualified health human services care specialist performing a gastrointestinal endoscopic service that sedation supports, requiring the presence of an independent trained observer to assist in the monitoring of the patient's level of consciousness and physiological status; initial 15 minutes of intra-service time; patient age 5 years or older (additional time may be reported with 39260, as appropriate) Diagnosis Code(s): --- Professional --- K63.5, Polyp of colon Z86.010, Personal history of colonic polyps CPT copyright 2020 [employer]. All rights reserved. The codes documented in this report are preliminary and upon hydraulic and plumbing installer review may be revised to meet current compliance requirements. Xiomara 06/26/2022 2:01:13 PM This document has been electronically signed. Number of Addenda: 0 Note Initiated On: 06/26/2022 1:04 PM Endoscopy Report us Darrius Chaudhry MD ET GI PROCEDURE ORDERABLES Dominique norton Result * Hepatitis C Virus Lacie with Reflex (09/17/2017 11:17 AM COUNSELING PSYCHOLOGIST) Hepatitis C Antibody Nonreactive Nonreactive PN SOFT 09/17/2017 11:1 7 AM COUNSELING PSYCHOLOGIST 09/17/2017 1:41 PM COUNSELING PSYCHOLOGIST Narrative PN SOFT - 09/17/2017 3:56 PM COUNSELING PSYCHOLOGIST Performed at [facility], [address] [place] [address] CLIA number [id number] us Dl Whittaker MD LAB_1 Final Resul t SOFT [address] [place] [address] from Last 3 Months or Most Recently Relevant to Health Maintenance Additional Health Concerns Active Problems Noted Date Diagnosed Date KNEE REPLACEMENT - RIGHT - [facility] 10/31/2024 Insurance 2007 [place] [id number] 2007 [place] [id number] [facility] MEDICARE 2007 [place] [id number] 2007 [place] [id number] Advance Directives * Full Code (Latest Code Status on File) Date Activated Date Inactivated Comments 06/29/2019 12:06 PM 06/29/2019 3:31 PM Care Teams Electrical Control Assembler Relationship Specialty Start Date End Date Jessenia Linda MD [address] [place] [address] PCP - General Internal Medicine 04/07/24
--- OUTSIDE RECORDS SUMMARY | 2024-11-16 19:22 | XMS_ITS | Encounter Summary ---
Author Organization [facility] Address [address], [place] [address] Care Team Providers Care Technical Intern Name Role Phone Jessenia Linda MD Primary Care Provider [phone]- [phone] Reason for Visit * Reason Comments Surgery, To Schedule Encounter Details Date Type Department Care Team (Late st Contact Info) Description 09/21/2024 Telephone [facility] Orthopaedics & Sports Medicine [address] [place] [address] [place] [address] [place] [address] Surgery, To Schedule Social History Tobacco Use Types Packs/Day Years [...] as of this encounter Nursing Notes * Joselyn Guerrier - 11/08/2024 12:47 PM CST Pt called said he had pre-op on 10/30 and wanted to know if we got the results, told pt I have not had anything come across my desk, pt said he will call the office and have them fax, pt confirmed he did a nasal swab. Joselyn Guerrier 12:49 PM 11/08/2024 DOWN HELPER * Joselyn Guerrier - 09/22/2024 9:10 AM CST Images from the original note were not included. PT APPROVED FOR SURG @ [facility] - DOS: 11/15/24 Joselyn Guerrier 9:11 AM 09/22/2024 DOWN HELPER * Joselyn Guerrier - 09/21/2024 11:48 AM CST PT WILL HAVE NEW INS FOR 2024 - CL, ID: [id number], GRP: [id number] Joselyn Guerrier 11:48 AM 09/21/2024 DOWN HELPER * Joselyn Guerrier - 09/21/2024 11:42 AM CST Pt is scheduled for surgery DOS: 11/15/24 PROCEDURE: RIGHT TKA PROVIDER: MALLORIE LOCATION: [facility] BOP CANAL BOAT CAPTAIN NOTE: [] OP TIME ORDERS [x] PRE-OP: DR LINDA WK OF 10/23 [x] NASAL SWAB: [x] PRE PT: [x] PT: [x] POST OP'S: [] OR BOOKED: [] [facility] APPROVED: [x] WAS A PACKET SENT OR GIVEN: given [x] IS PA NEEDED: NO [x] INS: UCRAE [x] ENROLLMENT: [] MD OUTLOOK: [x] ON EXCEL: [x] FORMS: NONE [x] APPT DESK: [] CHART NOTES CHECKED: Joselyn Guerrier 12:43 PM 11/08/2024 DOWN HELPER DOWN HELPER documented in this encounter Plan of Treatment Upcoming Encounters Date Type Department Care Team (Late st Contact Info) Description 11/21/2024 9:00 AM BLOW DOWN HELPER Appointment [facility] [address] [address] Car Kirby, PT [address] [place], [place] [address] 11/23/2024 1:00 PM BLOW DOWN HELPER Appointment [facility] [address] [address] Car Kirby, PT [address] [place], [place] [id number] 11/28/2024 11:15 AM BLOW DOWN HELPER Appointment [facility] [address] [address] Car Kirby, PT [address] [place], [place] [address] 11/30/2024 9:00 AM BLOW DOWN HELPER Appointment [facility] Orthopaedics & Sports Medicine [address] [place] [phone] [place] [address] [place], [place] [address] 11/30/2024 1:00 PM BLOW DOWN HELPER Appointment [facility] [address] [address] Car Kirby, PT [address] [place], [place] [address] 12/05/2024 11:15 AM BLOW DOWN HELPER Appointment [facility] [address] [address] Car Kirby, PT [address] [place], [place] [address] 12/07/2024 1:00 PM BLOW DOWN HELPER Appointment [facility] [address] [address] Car Kirby, PT [address] [place] [address] 12/12/2024 9:45 AM CDT Appointment [facility] [address] [address] [place] [address] [place] [address] 12/14/2024 10:00 AM CDT Appointment [facility] [address] [address] [place] [address] [place] [address] 12/19/2024 11:15 AM CDT Appointment [facility] [address] [address] Car Kirby, PT [address] [place] [address] 12/21/2024 1:00 PM CDT Appointment [facility] [address] [address] Car Kirby, PT [address] [place] [address] 01/02/2025 11:15 AM CDT Appointment [facility] [address] [address] Car Kirby, PT [address] [place] [address] 01/04/2025 10:30 AM CDT Appointment [facility] [address] [place] [phone] Dima Hoffman, OA [address] [place] [address] 01/04/2025 1:00 PM CDT Appointment [facility] [place] [address] [facility] [place] [address] Car Kirby, PT [address] [place] [address] 05/08/2025 10:15 AM CDT Appointment [facility] [place] [facility]ology [address], [address] [place] [address] Ambreen Hollis MD [address] [place] [phone] 10/25/2025 10:00 AM BLOW DOWN HELPER Appointment [facility] [address] [phone] [facility] [place], [place] [address] David Aguilar MD [address] [place] [address] documented as of this encounter Visit Diagnoses Not on filedocumented in this encounter Care Teams Technical Intern Relationship Specialty Start Date End Date Jessenia Linda MD [address] [place] [address] PCP - General Internal Medicine 04/07/24 documented as of this encounter
--- OUTSIDE RECORDS SUMMARY | 2024-11-16 19:22 | XMS_ITS | Clinical Summary ---
Author Organization [facility] Address [place], [place] [address] Care Team Providers Care Director Of Home Economics Name Role Phone Pcp, No Primary Care Provider Unavailabl e Allergies Active Allergy Reactions Criticality Noted Date Comments Gluten GI Upset 11/15/2024 Celiac disease Venom-Honey Bee Other - Describe In Comment Field 11/26/2011 PN: localized swellling Medications atorvastatin (LIPITOR) 20 mg tablet 20 mg once daily with evening meal. 06/08/20 24 Active lisinopriL (PRINIVIL; ZESTRIL) 20 mg tablet Take 1 Tablet by mouth at bedtime. 08/24/20 24 025 Active metoprolol succinate (TOPROL XL) 100 mg Sustained-Release tablet Take 100 mg by mouth two times daily. 11/24/19 24 Active digoxin (LANOXIN) 250 mcg (0.25 mg) tablet Take 250 mcg by mouth once daily. Active EPINEPHrine (EpiPen) 0.3 mg/0.3 mL auto-injector Inject 1 Pen intramuscular each time if needed for Allergic Reaction. Active GLUCOS SUL [id number]- [place] ORAL Take 1 Capsule by mouth two times daily. Active metroNIDAZOLE 0.75 % gel Apply topically to affected area(s) 2 times daily if needed. Active oxyCODONE (ROXICODONE) 5 mg immediate release tabletIndications :S/P total knee arthroplasty, right Take 1-2 Tablets (5-10 mg) by mouth every 4 hours if needed for Pain. 35 Tablet 5 2:09 PM HAT BAND ATTACHER 11/15/19 25 Active sennosides-docusa te (SENOKOT S) (8.6-50 mg) tabletIndications :S/P total knee arthroplasty, right Take 2 Tablets by mouth 2 times daily if needed for constipation. Hold for loose stool. 50 Tablet 5 2:09 PM HAT BAND ATTACHER 11/15/19 25 Active WalkerIndications :S/P total knee arthroplasty, right Walker with front wheels for home use. 1 Each 11/15/19 25 Active rivaroxaban (Xarelto) 10 mg tabletIndications :deep vein thrombosis prevention Take 1 Tablet (10 mg) by mouth once daily with evening meal for 7 days. Once completed this, resume your previous dose of 20 mg daily 7 Tablet 5 4:54 PM HAT BAND ATTACHER 11/15/19 25 025 Active acetaminophen (TYLENOL EXTRA STRGTH) 500 mg tabletIndications :S/P total knee arthroplasty, right Take 1-2 Tablets (500-1,000 mg) by mouth every 6 hours if needed for Pain. Max acetaminophen dose: 4000mg in 24 hrs. 100 Tablet 5 2:09 PM HAT BAND ATTACHER 11/15/19 25 Active hydrOXYzine pamoate (VISTARIL) 25 mg capsuleIndication s:S/P total knee arthroplasty, right Take 1 Capsule (25 mg) by mouth every 6 hours if needed (muscle spasm). 30 Capsule 5 2:09 PM HAT BAND ATTACHER 11/15/19 25 Active ondansetron (ZOFRAN ODT) 4 mg disintegrating tabletIndications :S/P total knee arthroplasty, right Place 1 Tablet (4 mg) on the tongue every 8 hours if needed for Nausea/Vomiting. 20 Tablet 5 2:09 PM HAT BAND ATTACHER 11/15/19 25 Active cephalexin 500 mg capsuleIndication s:PROPHYLAXIS Take 1 Capsule (500 mg) by mouth every 8 hours for 1 day. 3 Capsule 5 2:09 PM HAT BAND ATTACHER 11/15/19 25 025 Active rivaroxaban (Xarelto) 20 mg tablet 20 mg. DAILY 10/09/19 25 025 Discontin ued(*IP Discontin ued) Encounters Date Type Department Care Team Description 11/15/2024 1:28 PM HAT BAND ATTACHER Anesthesia Event [facility] [address] [facility] [place] [address] Lorne Matthews, Dania Peñaloza CRNA 11/15/2024 1:10 PM HAT BAND ATTACHER - 11/15/2024 4:15 PM HAT BAND ATTACHER Surgery [address] [place] [address] Beatrice Sinha MD Right Knee Arthroplasty 11/15/2024 11:31 AM HAT BAND ATTACHER - 11/15/2024 6:50 PM HAT BAND ATTACHER Hospital Encounter [address] [place] [address] Beatrice Sinha MD S/P total knee arthroplasty, right (Primary Dx) Discharge Disposition: Home Self Care 11/15/2024 Travel 11/08/2024 Travel from Last 3 Months Social History Tobacco Use Types Packs/Day Years Used Date Smoking Tobacco: Never Smokeless Tobacco: Never Alcohol Use Standard Drinks/Week Comments Yes 0 (1 standard drink = 0.6 oz pur e alcohol) 7 WEEK or less Sex and Gender Information Value Date Recorded Sex Assigned at Not on file Legal Sex Male 12:47 PM HAT BAND ATTACHER Gender Identity Not on file Sexual Orientation Not on file Travel History Travel Start Travel End [facility] [place]. 11/04/2024 11/08/2024 Obstetrics History Last Filed Vital Signs Vital Sign Reading Time Taken Comments Blood Pressure 149/95 11/15/2024 6:45 PM HAT BAND ATTACHER Pulse 77 11/15/2024 6:45 PM HAT BAND ATTACHER Temperature 36.8 C (98.3 F) 11/15/2024 4:32 PM HAT BAND ATTACHER Respiratory Rate 18 11/15/2024 6:00 PM HAT BAND ATTACHER Oxygen Saturation 95% 11/15/2024 6:45 PM HAT BAND ATTACHER Inhaled Oxygen Concentration - - Weight 99.8 kg (220 lb) 11/15/2024 11:54 AM HAT BAND ATTACHER Height 180.3 cm (5' 11) 11/15/2024 11:54 AM HAT BAND ATTACHER Body Mass Index 30.68 11/15/2024 11:54 AM HAT BAND ATTACHER Plan of Treatment Health Maintenance Due Date Last Done Comments Tdap 1959 Depression screening for age 12+ 1960 BMI (ht and wt on same day) for age 18+ 1966 Hepatitis C screening for ag e 18-79 1966 Tetanus booster 1968 Pneumococcal series for age 50+ (1 of 1 - PCV) 1998 Zoster (shingles) series for age 50+ (1 of 2) 1998 Medicare Wellness for age 65+ 2013 RSV vaccine for adults or (1 - 1-dose 75+ series) 2023 Influenza for age 65+ 06/04/2024 COVID-19 vaccine series Completed 08/21/20, 05/04/2024, 06/30/2022, Additional history exists Medical Devices Implanted Type Area Pet Store Merchandiser Device Identifier Shelf Expiration Date Model / Serial / Lot Cmnt Bone Simplex Hv Us 1 Pack - [id number] Implanted:Qty: 2 on 11/15/2024 by Beatrice Sinha MD at [facility] Right: Knee [employer] 03/03/2026 [id number] / / [id number] Patella 37x8.5mm Ediard Rnd E Non Pors - [id number] Implanted:Qty: 1 on 11/15/2024 by Beatrice Sinha MD at [facility] Right: Knee [employer] 04/27/2029 [id number] / / [id number] Fem Rt Sz 70 Vanguard Intlk Cruc Ret Co Cr Non Pors - [id number] Implanted:Qty: 1 on 11/15/2024 by Beatrice Sinha MD at [facility] Right: Knee [employer] 08/14/2034 [id number] / / [id number] Baseplate Tib 79mm Ascent Maxim Cruc Ret I-Beam Co Cr - [id number] Implanted:Qty: 1 on 11/15/2024 by Beatrice Sinha MD at [facility] Right: Knee [employer] 06/30/2033 [id number] / / [id number] Insert Tib Vanguard 97k27rh Ant Stbz - [id number] Implanted:Qty: 1 on 11/15/2024 by Beatrice Sinha MD at [facility] Right: Knee [employer] 06/29/2028 [id number] / / [id number] Procedures Procedure Name Priority Date/Time Associated Diagnosis Comments PERIPHERAL BLOCK Routine 11/15/2024 4:22 PM HAT BAND ATTACHER PERIPHERAL BLOCK Routine 11/15/2024 4:22 PM HAT BAND ATTACHER PERIPHERAL BLOCK Routine 11/15/2024 4:22 PM HAT BAND ATTACHER PERIPHERAL BLOCK Routine 11/15/2024 4:22 PM HAT BAND ATTACHER PERIPHERAL BLOCK Routine 11/15/2024 4:22 PM HAT BAND ATTACHER PERIPHERAL BLOCK Routine 11/15/2024 4:22 PM HAT BAND ATTACHER XR KNEE 2 VIEWS RIGHT PORTABLE GABRIELLA 11/15/2024 4:02 PM HAT BAND ATTACHER SPINAL BLOCK Routine 11/15/2024 2:48 PM HAT BAND ATTACHER ARTHROPLASTY KNEE 11/15/2024 12: 58 PM HAT BAND ATTACHER knee OA Case Notes [employer]__[employer] = Blayne Ritchie from [employer] emailed 10/30-mp GLUCOSE METER Timed 11/15/2024 11:57 AM HAT BAND ATTACHER SCAN-CARDIAC STRIP 11/15/2024 12 :00 AM HAT BAND ATTACHER from Last 3 Months Results * [facility] NDL PR10, [facility] INSTRUMENT DISP PR50, [facility] DRSG PR1, [facility] SKIN TISSUE ADHESIVE PR10, [facility] ANES BLOCK INJ PERIPH, PERIPHERAL BLOCK CATHETER (11/15/2024 4:22 PM HAT BAND ATTACHER) Narrative Oscar Patricia MD - 11/15/2024 4:22 PM HAT BAND ATTACHER Oscar aPtricia MD 11/15/2024 4:24 PM Peripheral Block Patient location during procedure: post-op Start time: 11/15/2024 4:14 PM End time: 11/15/2024 4:20 PM Reason for block: at surgeon's request and post-op pain PreProcedure Checklist Completed: patient identified, site marked, risks and benefits discussed, surgical consent, timeout performed and hand hygiene performed. Peripheral Block Patient position: supine Prep: chloraprep Patient monitoring: continuous pulse oximetry, ECG and blood pressure Supplemental O2: yes Neuro Status: mild sedation Block type: adductor canal and lower extremity , regional analgesia techniques Lower extremity block type: adductor canal block of the femoral nerve Laterality: right Injection technique: single injection Skin Infiltration: lidocaine 1% Injection assessment: incremental Needle Needle type: short-bevel Needle gauge: 21 G Needle length: 6 in Unilateral needle localization (ultrasound): live ultrasound guidance, needle and nerve visualized, no pathologic findings, local anesthetic visualized surrounding nerve, nerve appears normal and permanent images obtained. Needle Localization (other): anatomical landmarks. Catheter Catheter used:yes Catheter type: open tip Catheter size: 19 G Aspiration of Catheter: negative Catheter at skin depth: 5 cm Test dose: lidocaine 1.5% with epinephrine 1:200,000 Test Dose Amount: 3 ml Test Dose Result: negative Secured with Dermabond Secured with tegaderm Events: no complications. us Lorne Matthews CYCLE DIRECTOR ANESTHESIA PX NOTE ORDERA JAVI Final Result * XR KNEE 2 VIEWS RIGHT PORTABLE (11/15/2024 4:02 PM HAT BAND ATTACHER) Anatomical Region Laterality Modality KNEE R Digital Radiogra phy 11/16/2024 1:18 AM HAT BAND ATTACHER Impressions 11/16/2024 1:18 AM HAT BAND ATTACHER Intact right TKA with expected immediate postoperative findings. Dictated by Atiya Mace MD @ 11/16/2024 1:18:43 AM (Electronically Signed) Narrative 11/16/2024 1:18 AM HAT BAND ATTACHER For Patients: As a result of the Century Cures Act, medical imaging exams and procedure reports are released immediately into your electronic medical record. You may view this report before your referring provider. If you have questions, please contact your health care provider. INDICATION: Postop, eval prothesis/appliance. TECHNIQUE: Right knee 2 view. COMPARISON: None. FINDINGS: Postoperative changes of right total knee arthroplasty with patellar resurfacing. Hardware appears intact and well positioned. Postoperative soft tissue swelling and gas about the knee. No acute fracture or dislocation. Procedure Note Atiya Mace MD - 11/16/2024 For Patients: As a result of the Cures Act, medical imagingexams and procedure reports are released immediately into your electronicmedical record. You may view this report before your referring provider.If you have questions, please contact your health care provider. INDICATION: Postop, eval prothesis/appliance. TECHNIQUE: Right knee 2 view. COMPARISON: None. FINDINGS: Postoperative changes of right total knee arthroplasty with patellarresurfacing. Hardware appears intact and well positioned. Postoperativesoft tissue swelling and gas about the knee. No acute fracture ordislocation. IMPRESSION: Intact right TKA with expected immediate postoperative findings. Dictated by Atiya Mace MD @ 11/16/2024 1:18:43 AM (Electronically Signed) us Beatrice Sinha MD GENERAL IMAGING Final Result * [facility] TRAY PR10 (11/15/2024 2:48 PM HAT BAND ATTACHER) Narrative Edmundo Abraham MD - 11/15/2024 2:48 PM HAT BAND ATTACHER Edmundo Abraham MD 11/15/2024 2:49 PM Spinal Block Patient location during procedure: OR Start time: 11/15/2024 1:33 PM End time: 11/15/2024 1:35 PM Reason for block: primary anesthetic Requesting provider: Beatrice Sinha MD PreProcedure Checklist Completed: patient identified, risks and benefits discussed, timeout performed, hand hygiene performed, chloraprep used and completely dried prior to procedure, IV checked, site marked, surgical consent and hand hygiene performed Spinal Block Patient position: sitting Prep: chloraprep and sterile drape Patient monitoring: continuous pulse oximetry, ECG and blood pressure Supplemental O2: yes Approach: midline Skin Infiltration: lidocaine 1% Location: L3-4 Needle Needle type: pencil-point Needle gauge: 24 G Needle length: 4 in Assessment Sensory level: T10 Events: no complications. us Edmundo Abraham MD ANESTHESIA PX NOTE ORDERABL ES Final Result * GLUCOSE METER (11/15/2024 11:57 AM HAT BAND ATTACHER) GLUCOSE METER 90 65 - 100 mg/dL 11/15/2024 11:57 AM HAT BAND ATTACHER [facility] Blood BLOOD SPECIMEN / Unknown 11/15/2024 11:57 AM HAT BAND ATTACHER 11/15/2024 11:57 AM HAT BAND ATTACHER us Beatrice Sinha MD CHEMISTRY Final Result [facility] [address] [place] [address] * SCAN-CARDIAC STRIP (11/15/2024 12:00 AM HAT BAND ATTACHER) Narrative 11/15/2024 12:00 AM HAT BAND ATTACHER Ordered by an unspecified provider. us Other Clinical Staff OTHER Final Resul t from Last 3 Months Insurance [facility] MEDICARE ADVANTAGE MR MEDICARE PART A HB ONLY Advance Directives * Full Code (Latest Code Status on File) Date Activated Date Inactivated Comments 11/15/2024 12:56 PM 11/15/2024 8:58 PM Question Answer Comments Code Status Discussion: Not Discussed Care Teams Director Of Home Economics Relationship Specialty Start Date End Date Pcp, No . PCP - General 10/23/22
--- NOTE | 2024-11-16 19:30 | ED.GENADULT ---
HPI - General Adult General Time Seen by Provider: 19:30 Date Seen: 11/16/24 Chief complaint: Fall/Minor Trauma Stated complaint: Fall Time Seen by Provider: 11/16/24 19:27 Source: patient and EMS Mode of arrival: EMS Limitations: no limitations History of Present Illness HPI narrative: Donny is a 74-year-old male past medical history includes paroxysmal atrial fibrillation on Xarelto for anticoagulation, hyperlipidemia, status post recent right total knee replacement presents emerged department via EMS with syncope and fall. According to patient and EMS, he had a replaced total right knee yesterday at [facility] in [place], this was a one-day surgery and he was discharged home. Patient was doing relatively well, using a walker to get around to his place, he was given oxycodone IR 5 mg p.r.n. for pain. He also has a Novocain pump. He states that prior to dinner he just felt off, started getting some nausea. He ended up eating dinner, took his medications which included oxycodone. Patient got up with his walker and was ambulating, he then got very lightheaded, passed out. According to patient fell face first on the kitchen floor, she states he was not breathing for a minute, very pale, patient then woke up, he came too, and became more alert, per EMS he was alert oriented x4. Patient has no cardiac history, history of any syncope, seizure activity, denies any fevers or chills, denied any pre shortness of breath or chest pain, denies any nausea vomiting, denies any headache or neck pain. Rest of any PEs or DVTs. The patient was given Zofran 4 mg ODT. No other concerns at this time. Related Data Home Medications ?Medication ?Instructions ?Recorded ?Confirmed atorvastatin 20 mg tablet 20 mg PO DAILY 10/20/22 11/23/24 rivaroxaban 20 mg PO DAILY 10/20/22 11/23/24 metronidazole 0.75 % topical cream 1 applic topical BID PRN 12/08/22 11/23/24 digoxin 250 mcg (0.25 mg) tablet 250 mcg PO DAILY 10/24/24 11/23/24 glucosamine sulf dipot 1 cap PO BID 10/24/24 11/23/24 chlr,msm,chond 550 mg-C 30 mg-paulino 1 mg capsule (Glucosamine Chondroitin) lisinopril 20 mg tablet 20 mg PO DAILY 10/24/24 11/23/24 metoprolol succinate 100 mg 100 mg PO BID 10/24/24 11/23/24 tablet,extended release 24 hr oxycodone 5 mg tablet 5 mg PO Q4H PRN 11/16/24 11/23/24 Previous Rx's ?Medication ?Instructions ?Recorded epinephrine 0.3 mg/0.3 mL 0.3 mg (0.3 mL) IM ONCE #2 ea 05/17/23 injection, auto-injector (EpiPen 2-Adrian) Allergies Allergy/AdvReac Type Severity Reaction Status Date / Time bee venom protein (honey bee) Allergy Unknown Verified 11/23/24 11:05 Review of Systems Status of ROS: Reports: 10 or more systems reviewed and unremarkable except as noted in History and below [facility] Medical History (Updated 11/24/24 @ 00:01 by Background Daemon) Persistent atrial fibrillation ?I48.19 - Other persistent atrial fibrillation (ICD-10) Hyperlipidemia ?E78.5 - Hyperlipidemia, unspecified (ICD-10) Essential hypertension ?I10 - Essential (primary) hypertension (ICD-10) Celiac disease ?K90.0 - Celiac disease (ICD-10) Surgical History (Updated 12/08/22 @ 14:24 by Jessenia Linda MD) History of arthroscopic knee surgery ?Z98.890 - Other specified postprocedural states (ICD-10) History of tonsillectomy ?Z90.89 - Acquired absence of other organs (ICD-10) History of basal cell carcinoma excision ?Z98.890 - Other specified postprocedural states (ICD-10) ?Z85.828 - Personal history of other malignant neoplasm of skin (ICD-10) History of squamous cell carcinoma excision ?Z98.890 - Other specified postprocedural states (ICD-10) ?Z85.9 - Personal history of malignant neoplasm, unspecified (ICD-10) Social History What is your current living situation?: I presently have a place to live Problems where you live: no known problems Problems where you live details: n/a In the past 12 months, utilities in danger of being shut off: yes In past 12 months, lack of transportation kept you from medical appts, meetings, work, or getting things needed for daily living: no In the past 12 mos, have been you worried that your food would run out before you had money to buy more?: never true In the past 12 mos, the food you bought just didn't last and you didn't have money to buy more?: never true Highest level of school completed/degree received: Doctoral degree Smoking Status: Never smoker How often do you have a drink containing alcohol: 4 or more times a week How many standard drinks containing alcohol do you have on a typical day: 3 or 4 How often do you have six or more drinks on one occasion: Never AUDIT-C Alcohol total score: 5 Non-prescribed substance use: denies use How often does anyone, including family, friends and others, physically hurt you: never How often does anyone, including family, friends and others, insult or talk down to you: never How often does anyone, including family, friends and others, threaten you with harm: never How often does anyone, including family, friends and others, scream or curse at you: never Exam Narrative: Exam Narrative: General: No obvious distress, sitting comfortably HEENT: Pupils equal round reactive to light, extraocular muscles intact Neck: Nontender cervical spine, supple, normal range of motion Heart: irregular irregular Abdomen: Soft nontender Muscle skeletal: Nontender the thoracic to lumbar spine, back is atraumatic Right knee: Large bandage in place, no breakthrough bleeding, limited range of motion due to pain Spontaneous movement of all extremities Neuro: Alert awake and oriented x3, GCS 15 Const: Vital Signs, click to edit/add: Vital Signs - 24 hr 11/16/24 19:25 11/16/24 19:56 11/16/24 20:00 Temperature 96.3 F L Pulse Rate 63 Pulse Rate [Pulse Oximeter] 56 L Respiratory Rate 14 18 20 Blood Pressure Blood Pressure [Ri ght Upper Arm] 136/91 H Pulse Oximetry 97 95 Oxygen Delivery Me thod Room Air Room Air 11/16/24 20:15 11/16/24 20:30 11/16/24 20:45 Temperature Pulse Rate 69 59 L 68 Pulse Rate [Pulse Oximeter] Respiratory Rate 18 22 11 L Blood Pressure Blood Pressure [Ri ght Upper Arm] Pulse Oximetry 96 97 98 Oxygen Delivery Me thod 11/16/24 20:52 11/16/24 21:00 11/16/24 21:14 Temperature Pulse Rate 57 L 67 70 Pulse Rate [Pulse Oximeter] Respiratory Rate 17 6 L 15 Blood Pressure 139/63 142/71 H Blood Pressure [Ri ght Upper Arm] Pulse Oximetry 98 98 98 Oxygen Delivery Me thod Room Air 11/16/24 21:15 11/16/24 21:17 11/16/24 21:21 Temperature Pulse Rate 74 71 67 Pulse Rate [Pulse Oximeter] Respiratory Rate 19 17 8 L Blood Pressure 135/74 143/78 H Blood Pressure [Ri ght Upper Arm] Pulse Oximetry 98 98 98 Oxygen Delivery Me thod 11/16/24 21:27 11/16/24 21:35 11/16/24 21:37 Temperature Pulse Rate 74 79 Pulse Rate [Pulse Oximeter] Respiratory Rate 20 18 Blood Pressure 146/74 H 141/80 H Blood Pressure [Ri ght Upper Arm] Pulse Oximetry 97 96 Oxygen Delivery Me thod Course Course ED Course: 7:15 PM: AIDET performed, vitals are stable at this time, workup will include CT head and cervical spine without IV contrast, XR right knee three views, IV peripheral, 0.9 normal saline bolus, orthostatic blood pressures, EKG, troponin point of care, INR CBC and CMP. Differential includes, cardiac arrhythmia, acute blood loss, intracranial bleed, other do feel diagnosis include but not limited to vasovagal syncope, polypharmacy, orthostatic syncope, seizure as well as of the etiology. Reevaluation(s) Time of Reevaluation #1: 21:23 Reevaluation #1: Patient family updated on imaging results, CBC showed no anemia, patient was not orthostatic, with care troponin negative, comprehensive metabolic panel showed normal electrolytes, renal function. CT head and cervical spine showed no acute intracranial or cervical pathology. EKG showed atrial fibrillation, with bundle-branch block seen on previous, no acute changes compared to previous. Patient was given the above care and did well. Discussed observation to monitor and patient and family in agreement. Spoke hospitalist, she accepts care of the patient Med surgery floor bed. Vital Signs Vital signs: Initial Vital Signs Temperature 96.3 F L 11/16/24 19:25 Temperature Source Temporal Artery Scan 11/16/24 19:25 Pulse Rate 56 L 11/16/24 19:25 Pulse Rhythm Irregular 11/16/24 19:25 Respiratory Rate 14 11/16/24 19:25 Blood Pressure 136/91 H 11/16/24 19:25 Blood Pressure Mean 106 H 11/16/24 19:25 Blood Pressure Position Supine 11/16/24 19:25 Pulse Oximetry 97 11/16/24 19:25 Oxygen Delivery Method Room Air 11/16/24 19:25 Vital Signs Temperature 96.3 F L 11/16/24 19:25 Pulse Rate 56 L 11/16/24 19:25 Respiratory Rate 14 11/16/24 19:25 Blood Pressure 136/91 H 11/16/24 19:25 Pulse Oximetry 97 11/16/24 19:25 Oxygen Delivery Method Room Air 11/16/24 19:25 Temperature 97.2 F L 11/17/24 07:57 Pulse Rate 67 11/17/24 10:13 Respiratory Rate 18 11/17/24 07:57 Blood Pressure 161/77 H 11/17/24 07:57 Pulse Oximetry 98 11/17/24 07:57 Oxygen Delivery Method Room Air 11/17/24 07:57 Medications Administered Medications: Discontinued Medications Generic Name Dose Route Start Last Admin Trade Name Freq PRN Reason Stop Dose Admin Acetaminophen 650 - 975 mg 11/16/24 22:13 11/17/24 05:55 Acetaminophen 325 Mg Tablet PO 975 mg Q6H PRN Administration Atorvastatin Calcium 20 mg 11/17/24 09:00 11/17/24 08:56 Atorvastatin Calcium 10 Mg Tablet PO Not Given DAILY RAUL Digoxin 250 mcg 11/17/24 09:00 11/17/24 08:54 Digoxin 250 Mcg Tablet PO 250 mcg DAILY RAUL Administration Sodium Chloride 1,000 mls @ 1,000 mls/hr 11/16/24 19:29 11/16/24 19:50 0.9 % Sodium Chloride 1000 Ml IV 11/16/24 20:28 1,000 mls/hr .Q1H RAUL Administration Lisinopril 20 mg 11/17/24 09:00 11/17/24 08:56 Lisinopril 20 Mg Tablet PO Not Given DAILY RAUL Metoprolol Succinate 100 mg 11/17/24 09:00 11/17/24 08:55 Metoprolol Succinate (Xl) 100 Mg Tab PO 100 mg BID RAUL Administration Ondansetron HCl 4 mg 11/16/24 19:44 11/16/24 19:50 Ondansetron 2 Mg/Ml Inj IVP 11/16/24 19:45 4 mg ONCE ONE Administration Oxycodone HCl 5 mg 11/17/24 00:19 11/17/24 10:25 Oxycodone 5 Mg Tablet PO 5 mg Q4H PRN Administration Rivaroxaban 10 mg 11/17/24 09:00 11/17/24 08:56 Rivaroxaban 10 Mg Tablet PO Not Given DAILY [facility] Sodium Chloride 5 ml 11/17/24 09:00 11/17/24 08:57 Sodium Chloride 0.9 % (Flush) 10 Ml Syringe IVF Not Given BID [facility] Medical Decision Making Lab Data Labs: Lab Results 11/16/24 Range/Units 19:57 WBC 13.62 H (4.50-11.00) K/uL RBC 3.82 L (4.30-5.90) m/uL Hgb 12.1 L (13.5-17.5) gm/dL Hct 35.1 L (37.0-53.0) % MCV 92 (80-100) fL MCH 32 (26-34) pg MCHC 35 (32-36) gm/dL RDW Coeff of Ankush 12.6 (11.5-15.5) % Plt Count 200 (140-440) K/uL Neut % (Auto) 75.0 H (42.0-72.0) % Lymph % (Auto) 10.4 L (20-44) % [place] % (Auto) 14.2 H (0.0-11.0) % Eos % (Auto) 0.1 (0.0-7.0) % Baso % (Auto) 0.1 (0.0-3.0) % Neut # (Auto) 10.20 H (1.7-7.0) K/uL Lymph # (Auto) 1.40 (0.90-2.90) K/uL [place] # (Auto) 1.90 H (0.00-0.90) K/UL Eos # (Auto) 0.00 (0.00-0.50) K/uL Baso # (Auto) 0.00 (0.00-0.30) K/uL Abs Immat Gran (auto) 0.00 (0.00-0.30) K/uL Imm/Tot Granulo (auto) 0.2 % INR 1.38 H (0.91-1.10) Sodium 136 (135-149) mmol/L Potassium 4.8 (3.6-5.1) mmol/L Chloride 105 (96-114) mmol/L Carbon Dioxide 22 (20-32) mmol/L Anion Gap 9 (7-15) mEq/L BUN 22 (7-30) mg/dL Creatinine 0.8 (0.5-1.5) mg/dL Estimated Creat Clear 64.89 Estimated GFR 92 ml/min Glucose 169 H (60-115) mg/dL Calcium 8.0 L (8.4-10.6) mg/dL Total Bilirubin 0.7 (0.1-1.5) mg/dL AST 36 H (12-35) U/L ALT 34 (4-50) U/L Alkaline Phosphatase 49 (40-150) U/L Total Protein 5.9 L (6.0-8.3) g/dL Albumin 3.8 (3.3-5.0) g/dL Discharge Plan Discharge Clinical Impression: Syncope, History of revision of total replacement of right knee joint Patient Disposition: Admitted As Observation Condition: Improved Activity Level: Activity as Tolerated Activity Detail: per surgical restrictions Discharge Diet: Regular
[2024-11-16] MEDS: 0.9 % SODIUM CHLORIDE 1000 ml 1,000 ML IV (19:50)
[2024-11-16] MEDS: ONDANSETRON 2 MG/ML inj 4 MG IVP (19:50)
[2024-11-16 20:02] LABS: Basophils Percent Auto 0.1 % (0.0-3.0); Eosinophils Percent Auto 0.1 % (0.0-7.0); Hematocrit 35.1 % (37.0-53.0); Hemoglobin* 12.1 gm/dL (13.5-17.5); Immature Granulocytes Pct Auto 0.2 %; Lymphocytes Percent Auto 10.4 % (20-44); Mean Corpuscular HGB Conc 35 gm/dL (32-36); Mean Corpuscular Hemoglobin 32 pg (26-34); Mean Corpuscular Volume 92 fL (80-100); Monocytes Percent Auto 14.2 % (0.0-11.0); Platelet Count* 200 K/uL (140-440); RDW Coefficient of Variation % 12.6 % (11.5-15.5); Red Blood Count 3.82 m/uL (4.30-5.90); White Blood Count* 13.62 K/uL (4.50-11.00)
[2024-11-16 20:07] LABS: Slide Review Reflex No
[2024-11-16 20:26] LABS: INR 1.38 (0.91-1.10); Prothrombin Time 17.9 Seconds
[2024-11-16 20:52] LABS: Albumin* 3.8 g/dL (3.3-5.0); Chloride* 105 mmol/L (96-114)
[2024-11-16 20:53] LABS: Potassium* 4.8 mmol/L (3.6-5.1); Sodium* 136 mmol/L (135-149)
[2024-11-16 20:55] LABS: Anion Gap 9 mEq/L (7-15); Aspartate Amino Transferase* 36 U/L (12-35); Bilirubin Total* 0.7 mg/dL (0.1-1.5); Carbon Dioxide* 22 mmol/L (20-32); Creatinine* 0.8 mg/dL (0.5-1.5); Est. Creatinine Clearance* 64.89; Estimated Glomerular Filt Rate 92 ml/min; Total Protein* 5.9 g/dL (6.0-8.3)
[2024-11-16 20:56] LABS: Alanine Aminotransferase* 34 U/L (4-50); Alkaline Phosphatase* 49 U/L (40-150); Blood Urea Nitrogen* 22 mg/dL (7-30); Glucose* 169 mg/dL (60-115)
--- NOTE | 2024-11-16 22:19 | PM.IMHP1 ---
Hospitalist- H&P: HPI History of Present Illness Date Seen: 11/16/24 Chief complaint: Fall Narrative: Donny Freire is a 74 year old male with permanent a fib on Xarelto, NATALIIA with CPAP, hypertension, hyperlipidemia and osteoarthritis who presented to the ER after a syncopal event. Patient underwent a right knee joint replacement procedure on 11/15/24. He did well and discharged home the same day with a novocaine pump. He held his Xarelto for 5 days prior to surgery and started up at a lower dose post op with plan to resume full dose in the coming days. He was doing well at home until around dinner time. He noticed that his pain was increasing (he thinks anesthesia was wearing off). He took 2 tylenol and some oxycodone. About one hour later, he got up with his walker to ambulate to the other room. He felt his knee seizing up and it was painful and he had a prodrome of feeling ill before losing consciousness and falling forward onto his face. He broke his glasses in the fall. His turned around and saw him laid out on the floor and not responsive. THere was no shaking or seizure activity. She called 911 and he was brought to the ER by ambulance. He was unconscious for a very short period of time. When he awoke, he was diaphoretic and had some nausea. He denied any chest pain, palpitations, shortness of breath or headache. He denied any other symptoms and pain is reasonably well controlled. In the ER, he had head and C spine CTs which did not show any acute pathology. XR of knee showed that prosthesis was intact with some effusion but no acute fracture or dislocation. Labs reveal a leukocytosis (13,620) likely due to stress demarginalization as there are no other infectious signs or symptoms. He has a mild anemia at 12.1. Otherwise his labs are unremarkable. He will be admitted for observation after syncopal event likely due to vasovagal reaction to knee pain. Review of Systems Status of ROS: Reports: 10 or more systems reviewed and unremarkable except as noted in History and below [facility] Surgical History (Updated 12/08/22 @ 14:24 by Jessenia Linda MD) History of arthroscopic knee surgery ?Z98.890 - Other specified postprocedural states (ICD-10) History of tonsillectomy ?Z90.89 - Acquired absence of other organs (ICD-10) History of basal cell carcinoma excision ?Z98.890 - Other specified postprocedural states (ICD-10) ?Z85.828 - Personal history of other malignant neoplasm of skin (ICD-10) History of squamous cell carcinoma excision ?Z98.890 - Other specified postprocedural states (ICD-10) ?Z85.9 - Personal history of malignant neoplasm, unspecified (ICD-10) Social History Smoking Status: Never smoker How often do you have a drink containing alcohol: 4 or more times a week How many standard drinks containing alcohol do you have on a typical day: 3 or 4 How often do you have six or more drinks on one occasion: Never AUDIT-C Alcohol total score: 5 Non-prescribed substance use: denies use Meds Home Medications and Allergies Home Medications ?Medication ?Instructions ?Recorded ?Confirmed ?Type atorvastatin 20 mg tablet 20 mg PO DAILY 10/20/22 11/16/24 History rivaroxaban 20 mg PO DAILY 10/20/22 11/16/24 History metronidazole 0.75 % topical cream 1 applic topical BID PRN 12/08/22 09/13/23 History digoxin 250 mcg (0.25 mg) tablet 250 mcg PO QDAY 10/24/24 11/16/24 History glucosamine sulf dipot cap PO 10/24/24 10/24/24 History chlr,msm,chond 550 mg-C 30 mg-paulino 1 mg capsule (Glucosamine Chondroitin) lisinopril 20 mg tablet 20 mg PO DAILY 10/24/24 11/16/24 History metoprolol succinate 100 mg 100 mg PO BID 10/24/24 11/16/24 History tablet,extended release 24 hr hydroxyzine pamoate 25 mg capsule 25 mg PO Q6H PRN 11/16/24 11/16/24 History ondansetron 4 mg disintegrating 4 mg PO Q8H PRN 11/16/24 11/16/24 History tablet oxycodone 5 mg tablet 5 mg PO Q4H PRN 11/16/24 11/16/24 History rivaroxaban 10 mg tablet (Xarelto) 10 mg PO DAILY 11/16/24 11/16/24 History Allergies Allergy/AdvReac Type Severity Reaction Status Date / Time bee venom protein (honey bee) Allergy Unknown Verified 10/24/24 09:24 Exam Narrative: Exam Narrative: General- No distress, comfortable resting on ER cart HEENT- EOMI, MMM, small abrasion on bridge of nose, small erythematous bump on left forehead Resp: Breathing is comfortable, CTAB CV: IRR, no m/g/r Abd: Soft, nontender Extremities: 1+ bilateral lower extremity edema (patient reports this is normal for him). Right knee with postsurgical dressing intact. There is a quarter-sized area of dark blood strikethrough (appears not to be immediately acute), knee is swollen typical of postsurgical state, no clear hematoma Neuro: CN intact with symmetric face, fluent speech, 5/5 strength in bilateral upper and lower extremities. No lateralizing deficits Skin: Warm and dry Const: Vital Signs, click to edit/add: Vital Signs - 24 hr 11/16/24 19:25 11/16/24 19:56 11/16/24 20:00 Temperature 96.3 F L Pulse Rate 63 Pulse Rate [Pulse Oximeter] 56 L Respiratory Rate 14 18 20 Blood Pressure Blood Pressure [Ri ght Upper Arm] 136/91 H Pulse Oximetry 97 95 Oxygen Delivery Me thod Room Air Room Air 11/16/24 20:15 11/16/24 20:30 11/16/24 20:45 Temperature Pulse Rate 69 59 L 68 Pulse Rate [Pulse Oximeter] Respiratory Rate 18 22 11 L Blood Pressure Blood Pressure [Ri ght Upper Arm] Pulse Oximetry 96 97 98 Oxygen Delivery Me thod 11/16/24 20:52 11/16/24 21:00 11/16/24 21:14 Temperature Pulse Rate 57 L 67 70 Pulse Rate [Pulse Oximeter] Respiratory Rate 17 6 L 15 Blood Pressure 139/63 142/71 H Blood Pressure [Ri ght Upper Arm] Pulse Oximetry 98 98 98 Oxygen Delivery Me thod Room Air 11/16/24 21:15 11/16/24 21:17 11/16/24 21:21 Temperature Pulse Rate 74 71 67 Pulse Rate [Pulse Oximeter] Respiratory Rate 19 17 8 L Blood Pressure 135/74 143/78 H Blood Pressure [Ri ght Upper Arm] Pulse Oximetry 98 98 98 Oxygen Delivery Me thod 11/16/24 21:27 11/16/24 21:35 11/16/24 21:37 Temperature Pulse Rate 74 79 Pulse Rate [Pulse Oximeter] Respiratory Rate 20 18 Blood Pressure 146/74 H 141/80 H Blood Pressure [Ri ght Upper Arm] Pulse Oximetry 97 96 Oxygen Delivery Ks th Hospitalist - H&P: Result Labs Labs: Short CBC 11/16/24 Range/Units 19:57 WBC 13.62 H (4.50-11.00) K/uL Hgb 12.1 L (13.5-17.5) gm/dL Hct 35.1 L (37.0-53.0) % Plt Count 200 (140-440) K/uL BMP 11/16/24 19:57 Sodium 136 Potassium 4.8 Chloride 105 Carbon Dioxide 22 BUN 22 Creatinine 0.8 Glucose 169 H Calcium 8.0 L Liver Function 11/16/24 Range/Units 19:57 Total Bilirubin 0.7 (0.1-1.5) mg/dL AST 36 H (12-35) U/L ALT 34 (4-50) U/L Alkaline Phosphatase 49 (40-150) U/L Albumin 3.8 (3.3-5.0) g/dL Imaging CT scan - head: Attestation: I have reviewed the pertinent imaging results. Radiologist's impression: INDICATION: Fall, head injury, syncope. TECHNIQUE: Noncontrast CT of the head with multiplanar reconstruction utilizing bone and soft tissue algorithms. COMPARISON: None available. FINDINGS: No acute intracranial hemorrhage. The great white matter interface is preserved. Mild asymmetric effacement of the left parietal sulci likely reflecting normal variation. Mild diffuse parenchymal volume loss with ex vacuo prominence of the supratentorial ventricles. No abnormal extra-axial fluid collection. No calvarial fracture. Small midline frontal osteoma. Symmetric globes. The imaged paranasal sinuses and mastoid air cells are clear. IMPRESSION: No acute intracranial abnormality. Please note that all CT scans at this facility use dose modulation, iterative reconstruction, and/or weight-based dosing when appropriate to reduce radiation dose to as low as reasonably achievable. Dictated by Darrius Harley MD @ 11/16/2024 8:12:15 PM XR knee: Attestation: I have reviewed the pertinent imaging results. Radiologist's impression: Indication: Fall trauma. Technique: Right knee 3 views Comparison: None Findings: Bones: Prior total knee replacement with no evidence of hardware complication. No acute fracture or dislocation identified Joint spaces: Small knee joint effusion. Soft tissues: Mild diffuse soft tissue edema. Vascular calcifications. Impression: No acute fracture or dislocation. Dictated by Kenny Lewis MD @ 11/16/2024 9:44:58 PM Assessment and Plan Assessment and plan (1) Syncope: Status: Acute Assessment and Plan: Highly likely to be vasovagal episode. History of syncope due to pain in the past. Prodrome, diaphoresis and nausea support likelihood of vasovagal episode. No chest pain or palpitations. Afib is chronic and rate is well contolled. Electrolytes ok -Monitor on telemetry overnight -Consider echo if recurrent (2) History of revision of total replacement of right knee joint: Status: Acute Assessment and Plan: Patient had surgery at [place] on 11/15. Discharged home same day and did well until syncopal event prompting this admission. No evidence of injury with fall. -PT -Ice packs and pain control -Follow up with orthopedics outpatient, defer management of anesthetic pump (non-opioid) to outpatient provider (3) Obstructive sleep apnea: Problem comment: on CPAP since 08/25 Status: Acute Assessment and Plan: Continue CPAP here (4) Persistent atrial fibrillation: Problem comment: on medication and Xarelto/rivaroxaban Status: Acute Assessment and Plan: Rate is well controlled. Typically on full AC, but held for 5 days prior to surgery. Now titrating back to full dose. Very unlikely to have had CVA. No focal neuro deficits. Consider repeat head CT if any neuro changes occur (5) Hyperlipidemia: Problem comment: Dxed 2018, on atorvastatin Status: Acute (6) Essential hypertension: Problem comment: Dxed 2018, on medication Status: Acute Assessment and Plan: Blood pressure acceptable. -Continue home meds (7) Celiac disease: Problem comment: Dxed 2018, due to his daughter having the disease, minimal symptoms, follows a gluten free lifestyle, but not perfectly Status: Acute Plan Admit to observation Monitor on telemetry repeat CBC in am to trend Hgb and WBC Consider echo if recurrent syncope Consider repeat head CT if neuro changes Resume outpatient plan for knee with orthopedics on discharge Total Time Spent Total Time Spent: 60 min spent on chart review, evaluation, patient counseling, management and documentation
[2024-11-16] MEDS: ACETAMINOPHEN 325 MG TABLET PO (23:35)
[2024-11-17 00:01] VITALS: RESP 16; O2SAT 96
[2024-11-17 00:02] VITALS: BP 151/78; PULSE 66; RESP 16; TEMP 36.3; O2SAT 99; BMI 33.4
[2024-11-17 00:11] LABS: PCR FLU A Negative PCR FLU A (Negative); PCR FLU B Negative PCR FLU B (Negative); PCR RSV Negative PCR RSV (Negative); SARS PCR* Negative SARS-CoV-2 (Negative)
[2024-11-17 03:06] VITALS: BP 136/79; PULSE 64; RESP 18; TEMP 36.9; O2SAT 97
[2024-11-17] MEDS: OXYCODONE 5 MG TABLET PO ×2 (03:30→10:25)
[2024-11-17] MEDS: ACETAMINOPHEN 325 MG TABLET PO (05:55)
--- NOTE | 2024-11-17 06:29 | PC.NURSE ---
Pt arrived to the floor around 2200 from ED via card accompanied by . A&O with some forgetfulness. reports cognition is at baseline. VSS. maintaining sats >90% on RA. RTKA on 11/15, +CMS w/ strong plantar/dorsi flexion. dressing to knee dry and intact with a elyse size spot of dried bloody drainage. intermittent ice packs to knee. pt rating pain in knee 2-04/12. see eMAR for interventions. pt has an implanted medication pump above right knee since knee replacement. pt is able to control dosage. ok'd pt to continued to manage on own overnight. Pt reported to appeals writer tat he has not changed dosage since the afternoon of 11/15. pt denies any lightheaded/dizziness overnight. orthos unremarkable. able to move w/ A1 walker and GB. tolerates well. intermittently incontinent of urine. pt has small scrape on bridge of nose from fall at home. denies n/v. tolerating diet. Using home CPAP overnight. bed alarm in place. call light, water and personal belongings within reach.
[2024-11-17 06:31] LABS: Basophils Percent Auto 0.2 % (0.0-3.0); Eosinophils Percent Auto 0.5 % (0.0-7.0); Hematocrit 35.2 % (37.0-53.0); Hemoglobin* 11.7 gm/dL (13.5-17.5); Immature Granulocytes Pct Auto 0.2 %; Lymphocytes Percent Auto 12.5 % (20-44); Mean Corpuscular HGB Conc 33 gm/dL (32-36); Mean Corpuscular Hemoglobin 31 pg (26-34); Mean Corpuscular Volume 93 fL (80-100); Monocytes Percent Auto 17.1 % (0.0-11.0); Neutrophils Percent Auto 69.5 % (42.0-72.0); Platelet Count* 185 K/uL (140-440); RDW Coefficient of Variation % 12.9 % (11.5-15.5); Red Blood Count 3.78 m/uL (4.30-5.90); White Blood Count* 11.03 K/uL (4.50-11.00)
[2024-11-17 06:35] LABS: Slide Review Reflex No
[2024-11-17 07:57] VITALS: BP 161/77; PULSE 66; RESP 18; TEMP 36.2; O2SAT 98
[2024-11-17 08:54] VITALS: PULSE 64
[2024-11-17] MEDS: DIGOXIN 250 MCG TABLET PO (08:54)
[2024-11-17] MEDS: METOPROLOL SUCCINATE (XL) 100 MG TAB PO (08:55)
[2024-11-17 10:13] VITALS: PULSE 67
--- NOTE | 2024-11-17 10:20 | PM.DS1 ---
DS: Providers Provider Date Seen: 11/17/24 Date of admission: 11/16/24 22:08 Primary care physician: Jessenia Linda MD Admitting Clinician: Dorothy Telles MD Consults: OT and PT Attending Physician on discharge: Stefany Munoz MD Date of Discharge: 11/17/24 DS: Diagnosis Discharge Diagnosis (1) Syncope: Status: Acute Problem details: - while walking on postoperative knee, + pain - history of syncope with pain in the remote past, per - reassuring exam, telemetry, imaging during stay - seen by PT and OT on hospital day 1 with no other concerns noted (2) History of revision of total replacement of right knee joint: Status: Acute (3) Obstructive sleep apnea: Status: Acute Problem details: - on CPAP since 08/25 (4) Persistent atrial fibrillation: Status: Acute Problem details: - on Digoxin + Xarelto (5) Hyperlipidemia: Status: Acute Problem details: - diagnosed 2018, on atorvastatin (6) Essential hypertension: Status: Acute Problem details: - diagnosed 2019, on medication (7) Celiac disease: Status: Acute Problem details: - diagnosed 2019, due to his daughter having the disease, minimal symptoms, follows a gluten free lifestyle, but not perfectly DS: Summary Hospital Course Hospital Course: From H&P: Donny Freire is a 74 year old male with permanent a fib on Xarelto, NATALIIA with CPAP, hypertension, hyperlipidemia and osteoarthritis who presented to the ER after a syncopal event. Patient underwent a right knee joint replacement procedure on 11/15/24. He did well and discharged home the same day with a novocaine pump. He held his Xarelto for 5 days prior to surgery and started up at a lower dose post op with plan to resume full dose in the coming days. He was doing well at home until around dinner time. He noticed that his pain was increasing (he thinks anesthesia was wearing off). He took 2 tylenol and some oxycodone. About one hour later, he got up with his walker to ambulate to the other room. He felt his knee seizing up and it was painful and he had a prodrome of feeling ill before losing consciousness and falling forward onto his face. He broke his glasses in the fall. His turned around and saw him laid out on the floor and not responsive. THere was no shaking or seizure activity. She called 911 and he was brought to the ER by ambulance. He was unconscious for a very short period of time. When he awoke, he was diaphoretic and had some nausea. He denied any chest pain, palpitations, shortness of breath or headache. He denied any other symptoms and pain is reasonably well controlled. During stay: - reassuring head CT and C-Spine CT in ER, reassuring knee XRay - telemetry revealed baseline/stable rate controlled atrial fibrillation - no significant orthostasis - seen by PT and OT with no recurrence of symptoms - noted history of previous syncopal event / pain Back to baseline 11/17/24 and medically appropriate for d/c home. Status at Discharge Functional status at discharge: uses cane/walker Overall status at discharge: patient is progressing back to baseline Time Spent with Patient Time attestation: Total time spent providing and/or coordinating discharge services: Time spent: Greater than 30 minutes Specific discharge activities: Medication reconciliation, updates to patient and Exam Narrative: Exam Narrative: GEN: Alert and oriented, answering questions appropriately HEENT: EOMIs bilaterally, no scleral icterus CV: Atrial fibrillation with rate in the 60s, no concerning murmurs R: LCTA bilaterally without concerning wheezing, air movement adequate Ext: Trace bilateral lower extremity edema, symmetric and baseline per patient, wearing Rob stocking right lower extremity Skin: No concerning skin lesions or rashes on exposed skin Neuro: Nonfocal Psych: Appropriate Const: Vital Signs, click to edit/add: Vital Signs - 24 hr 11/16/24 19:25 11/16/24 19:56 11/16/24 20:00 Temperature 96.3 F L Pulse Rate 63 Pulse Rate [Pulse Oximeter] 56 L Pulse Rate [orthos tatic lying] Pulse Rate [orthos tatic sitting] Pulse Rate [orthos tatic standing] Respiratory Rate 14 18 20 Blood Pressure Blood Pressure [Le ft Arm] Blood Pressure [Ri ght Upper Arm] 136/91 H Blood Pressure [or thostatic lying] Blood Pressure [or thostatic sitting] Blood Pressure [or thostatic standing ] Pulse Oximetry 97 95 Oxygen Delivery Me thod Room Air Room Air 11/16/24 20:15 11/16/24 20:30 11/16/24 20:45 Temperature Pulse Rate 69 59 L 68 Pulse Rate [Pulse Oximeter] Pulse Rate [orthos tatic lying] Pulse Rate [orthos tatic sitting] Pulse Rate [orthos tatic standing] Respiratory Rate 18 22 11 L Blood Pressure Blood Pressure [Le ft Arm] Blood Pressure [Ri ght Upper Arm] Blood Pressure [or thostatic lying] Blood Pressure [or thostatic sitting] Blood Pressure [or thostatic standing ] Pulse Oximetry 96 97 98 Oxygen Delivery Tn thod 11/16/24 20:52 11/16/24 21:00 11/16/24 21:14 Temperature Pulse Rate 57 L 67 70 Pulse Rate [Pulse Oximeter] Pulse Rate [orthos tatic lying] Pulse Rate [orthos tatic sitting] Pulse Rate [orthos tatic standing] Respiratory Rate 17 6 L 15 Blood Pressure 139/63 142/71 H Blood Pressure [Le ft Arm] Blood Pressure [Ri ght Upper Arm] Blood Pressure [or thostatic lying] Blood Pressure [or thostatic sitting] Blood Pressure [or thostatic standing ] Pulse Oximetry 98 98 98 Oxygen Delivery [facility] Room Air 11/16/24 21:15 11/16/24 21:17 11/16/24 21:21 Temperature Pulse Rate 74 71 67 Pulse Rate [Pulse Oximeter] Pulse Rate [orthos tatic lying] Pulse Rate [orthos tatic sitting] Pulse Rate [orthos tatic standing] Respiratory Rate 19 17 8 L Blood Pressure 135/74 143/78 H Blood Pressure [Le ft Arm] Blood Pressure [Ri ght Upper Arm] Blood Pressure [or thostatic lying] Blood Pressure [or thostatic sitting] Blood Pressure [or thostatic standing ] Pulse Oximetry 98 98 98 Oxygen Delivery [facility] 11/16/24 21:27 11/16/24 21:35 11/16/24 21:37 Temperature Pulse Rate 74 79 Pulse Rate [Pulse Oximeter] Pulse Rate [orthos tatic lying] Pulse Rate [orthos tatic sitting] Pulse Rate [orthos tatic standing] Respiratory Rate 20 18 Blood Pressure 146/74 H 141/80 H Blood Pressure [Le ft Arm] Blood Pressure [Ri ght Upper Arm] Blood Pressure [or thostatic lying] Blood Pressure [or thostatic sitting] Blood Pressure [or thostatic standing ] Pulse Oximetry 97 96 Oxygen Delivery [facility] 11/16/24 23:25 11/16/24 23:59 11/17/24 00:01 Temperature Pulse Rate 64 Pulse Rate [Pulse Oximeter] Pulse Rate [orthos tatic lying] 72 Pulse Rate [orthos tatic sitting] 73 Pulse Rate [orthos tatic standing] 97 Respiratory Rate 16 Blood Pressure Blood Pressure [Le ft Arm] Blood Pressure [Ri ght Upper Arm] Blood Pressure [or thostatic lying] 136/73 Blood Pressure [or thostatic sitting] 139/78 Blood Pressure [or thostatic standing ] 144/71 H Pulse Oximetry 96 Oxygen Delivery Me thod Room Air 11/17/24 00:02 11/17/24 03:06 11/17/24 07:57 Temperature 97.4 F L 98.5 F 97.2 F L Pulse Rate Pulse Rate [Pulse Oximeter] 66 64 66 Pulse Rate [orthos tatic lying] Pulse Rate [orthos tatic sitting] Pulse Rate [orthos tatic standing] Respiratory Rate 16 18 18 Blood Pressure Blood Pressure [Le ft Arm] 151/78 H 136/79 161/77 H Blood Pressure [Ri ght Upper Arm] Blood Pressure [or thostatic lying] Blood Pressure [or thostatic sitting] Blood Pressure [or thostatic standing ] Pulse Oximetry 99 97 98 Oxygen Delivery Tn thod Room Air Room Air Room Air 11/17/24 08:54 Temperature Pulse Rate 64 Pulse Rate [Pulse Oximeter] Pulse Rate [orthos tatic lying] Pulse Rate [orthos tatic sitting] Pulse Rate [orthos tatic standing] Respiratory Rate Blood Pressure Blood Pressure [Le ft Arm] Blood Pressure [Ri ght Upper Arm] Blood Pressure [or thostatic lying] Blood Pressure [or thostatic sitting] Blood Pressure [or thostatic standing ] Pulse Oximetry Oxygen Delivery Tn thod DS: Data Data Completed and Pending Labs on day of discharge: Labs from last 24 hours 11/17/24 11/16/24 11/16/24 06:23 23:20 19:57 WBC 11.03 H 13.62 H RBC 3.78 L 3.82 L Hgb 11.7 L 12.1 L Hct 35.2 L 35.1 L MCV 93 92 MCH 31 32 MCHC 33 35 RDW Coeff of Ankush 12.9 12.6 Plt Count 185 200 Neut % (Auto) 69.5 75.0 H Lymph % (Auto) 12.5 L 10.4 L Garden % (Auto) 17.1 H 14.2 H Eos % (Auto) 0.5 0.1 Baso % (Auto) 0.2 0.1 Neut # (Auto) 7.70 H 10.20 H Lymph # (Auto) 1.40 1.40 Garden # (Auto) 1.90 H 1.90 H Eos # (Auto) 0.10 0.00 Baso # (Auto) 0.00 0.00 Abs Immat Gran (auto) 0.00 0.00 Imm/Tot Granulo (auto) 0.2 0.2 INR 1.38 H Sodium 136 Potassium 4.8 Chloride 105 Carbon Dioxide 22 Anion Gap 9 BUN 22 Creatinine 0.8 Estimated Creat Clear 64.89 Estimated GFR 92 Glucose 169 H Calcium 8.0 L Total Bilirubin 0.7 AST 36 H ALT 34 Alkaline Phosphatase 49 Total Protein 5.9 L Albumin 3.8 SARS-CoV-2 (PCR) Negative SARS-CoV-2 Influenza Type A (PCR) Negative PCR FLU A Influenza Type B (PCR) Negative PCR FLU B RSV (PCR) Negative PCR RSV POC Troponin I Pending Discharge Plan Discharge Disposition: Home, Self-Care Date of Admission: 11/16/24 22:08 Attending Provider on Discharge: Stefany Munoz Primary Care Provider: Jessenia Linda Condition: Improved Anticipated Discharge Date/Time: 11/17/24 10:01 Discharge Medications: Continued Glucosamine Chondroitin 550-30-1 mg capsule 1 cap PO BID Patient Comments: 1500mg/1200mg digoxin 250 mcg (0.25 mg) tablet 250 mcg PO DAILY metronidazole 0.75 % cream 1 applic topical BID PRN metoprolol succinate 100 mg tablet extended release 24 hr 100 mg PO BID atorvastatin 20 mg tablet 20 mg PO DAILY lisinopril 20 mg tablet 20 mg PO DAILY ondansetron 4 mg tablet,disintegrating 4 mg PO Q8H PRN oxycodone 5 mg tablet 5 mg PO Q4H PRN Patient Comments: [NO ORIGINAL SIG] Rx Instructions: 1-2 TABS hydroxyzine pamoate 25 mg capsule 25 mg PO Q6H PRN Patient Comments: [NO ORIGINAL SIG] Xarelto 10 mg tablet 10 mg PO DAILY Rx Instructions: FOR 7 DAYS THEN RESUME 20MG DAILY epinephrine [EpiPen 2-Adrian] 0.3 mg/0.3 mL auto-injector 0.3 mg IM ONCE Qty: 2 2RF Rx Instructions: as a single dose; may repeat once Held rivaroxaban [Xarelto] 20 mg PO DAILY Hold Instructions: Resume on 11/22/24. restart 20mg dose on 11/22 Discharge Orders: Discharge Order (Routine); Ordered 11/17/24 Ordered By: Stefany Munoz Additional Instructions: Take Tylenol (Acetaminophen) 1000mg every 8 hours with food (total Tylenol dose is 4000mg/24 hours, so 1000mg three times/day is a safe amount), with Oxycodone in between as needed. Continue 10mg of Xarelto for the next few days; increase back to 20mg dose on 11/22/24. Activity Level: Activity as Tolerated Activity Detail: per surgical restrictions Discharge Diet: Regular Follow Up Appointments: Jessenia Linda MD [Primary Care Provider] - (7-10 days for posthospital f/u) Forms: [employer] Info Instructions
--- NOTE | 2024-11-17 11:23 | PC.NURSE ---
Discharge: Patient pleasant and cooperative. Patient vitally stable, lungs clear, BS WNL, IV removed, catheter intact. Patient rates knee pain 3/10, oxy 5mg given once, active ice used. Patient SBA/walker. Patient tolerating regular diet and urinating well. Patient signed discharge form, no belongings sheet filled out. Patient had no further questions regarding discharge. Patient left the floor by wheelchair to home at 1121, accompanied by .
[2025-02-09 18:20] LABS: Troponin, Point-of-Care* 0.02 ng/ml (0.01-0.04)
== END 2024-11-17 11:21 | disposition home or self-care (01) ==
LOC: ED 21:25 → MEDSURG 22:09
PROVIDERS: Admitting Provider Family Medicine; Emergency Provider Student in an Organized Health Care Education/Training Program; PCP Internal Medicine; Visit Provider Family Medicine
DX: R55 Syncope and collapse (principal); Z98.890 Other specified postprocedural states; Z96.651 Presence of right artificial knee joint; I48.19 Other persistent atrial fibrillation; R11.0 Nausea; E78.5 Hyperlipidemia, unspecified; G47.33 Obstructive sleep apnea (adult) (pediatric); K90.0 Celiac disease; I10 Essential (primary) hypertension; R60.0 Localized edema; D64.9 Anemia, unspecified; Z79.01 Long term (current) use of anticoagulants
CPT/HCPCS: 36415; 70450; 72125; 73560; 80053; 84484; 85025; 85610; 87081; 87631; 93005; 96361; 96374; 97110; 97116; 97161; 97165; 97530; 97535; 99283; 99285; A9270; G0378; J2405; J7030

== ENCOUNTER 2025-01-08 09:10 | Outpatient (CLI) | payer MEDICARE, SELFPAY | END 2025-01-08 09:11 | disposition home or self-care (01) | PROVIDERS: PCP Internal Medicine; Referring Provider Internal Medicine; Visit Provider Internal Medicine | DX: I10 Essential (primary) hypertension (principal); E78.5 Hyperlipidemia, unspecified | CPT/HCPCS: 80048; 80061 ==

== ENCOUNTER 2025-06-29 08:14 | Outpatient (CLI) | payer MEDICARE, SELFPAY ==
--- NOTE | 2025-06-29 09:15 | CRLHL7_ITS ---
For Patients: As a result of the Century Cures Act, medical imaging exams and procedure reports are released immediately into your electronic medical record. You may view this report before your referring provider. If you have questions, please contact your health care provider. Technique: Double-contrast esophagram performed after the uneventful administration of effervescent crystals and thick barium followed by thin barium. Fluoroscopy time 1 minute 10 seconds. Indication: Dysphagia Comparison: None. Findings: Esophagus: Normal morphology with mildly decreased motility. No stricture or mass. Gastroesophageal reflux: Mild. Impression: Mild spontaneous reflux with mild decreased motility. No achalasia or hernia. Dictated by Kenny Goyal MD @ 06/29/2025 12:08:14 PM (Electronically Signed)
== END 2025-06-29 08:15 | disposition home or self-care (01) ==
LOC: RAD 08:15
PROVIDERS: PCP Internal Medicine; Visit Provider Internal Medicine
DX: R13.10 Dysphagia, unspecified (principal); K21.9 Gastro-esophageal reflux disease without esophagitis
CPT/HCPCS: 74221